=== PATIENT | male | born 1975 | race Caucasian/White ===

== ENCOUNTER 2018-12-13 21:45 | Emergency (ER) | payer OTHER, SELFPAY ==
[2018-12-13 21:46] VITALS: BP 125/78; PULSE 92; RESP 18; TEMP 36.6; O2SAT 99; BMI 35.4
--- NOTE | 2018-12-13 22:00 | RAD_ITS ---
STUDY: X-RAY - RIGHT HAND REASON FOR EXAM: Male, 43 years old. Laceration TECHNIQUE: 3 view(s) of the hand. COMPARISON: None. FINDINGS: Normal radiocarpal articulation. Normal distal radioulnar joint. Normal visualized carpal bones. Normal carpal articulations Normal carpometacarpal articulation of the thumb. Normal second through fifth carpometacarpal joints. Normal metacarpi. Normal metacarpophalangeal joint of the thumb. Normal interphalangeal joint of the thumb. Normal proximal and distal phalanges of the thumb. Normal metacarpophalangeal joints of the second through fifth fingers. Normal proximal and distal interphalangeal joints of the second through fifth fingers. Normal phalanges of the second through fifth fingers. Soft tissue swelling of the dorsal surface of the hand at the level of the metacarpal phalangeal joints. No radiopaque foreign bodies within the soft tissues RAD/Hand Min 3 Views IMPRESSION: Soft tissue swelling of the dorsal surface of the hand without evidence for acute fracture or radiopaque foreign body in the soft tissues Electronically Signed: Juvenal Reyna MD at 23:01 EST , Service support ,
--- NOTE | 2018-12-13 22:04 | ED.DCSUM_ITS ---
- ER Visit Summary Date of Service: 12/13/18 Chief Complaint: Right second finger laceration History of Present Illness: The patient is a 43 M presents to the emergency department with right second finger laceration. Patient was using a platen grinder. He states that the blade slipped and went into the dorsum of his right hand. He suffered a laceration on the dorsum of his right second finger. He is unsure of his last tetanus. He denies other injury. The patient is otherwise healthy. Physical Examination: Examination is relatively unremarkable. He does have a 2 cm laceration over the mid phalanges on the dorsum of the right second finger. Flexion and extension are preserved. Two-point determination is preserved. There is no injury to the nail. Test Results: [] Emergency Department Course and Treatment: The patient underwent plain films of the hand. There is no evidence of bony disruption. The area was anesthetized and irrigated. There was some gross contamination. I did try to remove all the pieces of the dirt from the platen grinder. Some were significantly retained within the soft tissue. There is no evidence of tendinous injury. Under a bloodless field, he was able to flex and extend. I did close the wound loosely given the amount of gross contamination. The patient will be passed on Keflex. I did drug and alcohol counsellor him this wound is going to need close reevaluation. I instructed him that if his symptoms are worsening or not improving within the next 48 hours he should return to the emergency department. He is comfortable with this plan of care. Treatment Plan: [] Disposition: Discharge Impression: 1. 2 cm right second finger laceration with repair This note was generated with [employer] dictation software. It may contain incorrect words, spelling, and punctuation that were not noted in review of the chart prior to signing ED Disposition - Plan for ED Patient: Chief Complaint: Laceration Instructions: ED Laceration Hand Prescriptions: Cephalexin [Keflex] 500 mg PO Q8 #21 cap Referrals: Care Physician,No Primary [Primary Care Provider] - 7 Days for suture removal
[2018-12-13] MEDS: Diphth,Pertuss(Acell),Tet Vac 0.5 ML Vial IM (22:43)
[2018-12-13] MEDS: Cephalexin 250 MG Capsule 500 MG PO (22:52)
== END 2018-12-13 22:59 | disposition home or self-care (01) ==
LOC: ED 22:27
PROVIDERS: Emergency Provider Emergency Medicine
DX: S61.220A Laceration with foreign body of right index finger without damage to nail, initial encounter (principal); W29.8XXA Contact with other powered hand tools and household machinery, initial encounter; Y93.89 Activity, other specified; Y92.89 Other specified places as the place of occurrence of the external cause; Y99.8 Other external cause status
CPT/HCPCS: 12041; 73130; 90471; 90715; 99284

== ENCOUNTER 2025-06-22 13:54 | Inpatient (IN) | payer BC, SELFPAY ==
[2025-06-22] VITALS (7 sets, daily range): BP systolic 132–161; BP diastolic 83–91; PULSE 74–81; RESP 18; TEMP 36.4–36.6; O2SAT 92–100; BMI 36.8
--- NOTE | 2025-06-22 14:21 | EKG12_ITS ---
Test Reason : CP Blood Pressure : */* mmHG Vent. Rate : 76 BPM Atrial Rate : 76 BPM P-R Int : 164 ms QRS Dur : 98 ms QT Int : 380 ms P-R-T Axes : 40 8 13 degrees QTcB Int : 427 ms Normal sinus rhythm Normal ECG Confirmed by HENNY CARRANZA, RAFA ([id number]), editor trade journal CAROLANN CAVAZOS ([id number]) on 06/25/2025 1:05:33 PM Referred By: LORETA/DANIA Confirmed By: RAFA INMAN MD
--- NOTE | 2025-06-22 14:36 | ED.VIS.CHEST ---
HPI History of Present Illness Chief Complaint: Chest Pain Informant: patient and spouse/S.O. Onset/Context/Timing Onset: Today and Yesterday Activity at onset: gradual Timing: Continuous Quality: Positive for Sharp and Stabbing Location: - (Epigastric area.) Current Severity: Mild Maximum Severity: Mild Worsened By: Nothing Relieved By: Nothing Associated Symptoms: Negative for Nausea, Vomiting, Diaphoresis, Dyspnea, Cough, Fever, Lightheadedness, Acid Reflux or Palpitations Narrative Narrative: 49-year-old male no Cee[facility] past medical history. No prior cardiac history. No prior cardiac testing he has never had a stress test or heart cath. States last night he had epigastric discomfort he thought it was just gas. Has been more persistent today with some tingling in his left arm. Denies any recent exertional chest pain. No significant exertional dyspnea. He did walk the dog last night prior to this occurring. He denies any nausea, vomiting or diarrhea. Denies any fever or chills. Denies any recent abdominal discomfort with eating. Prior Similar Symptoms: No Recent Illness/Hospitalization: No CVD Risk Factors: Negative for Hypertension, Diabetes or Hypercholesterolemia PE Risk Factors: Negative for Recent Travel/Surgery, Recent Immobilization, Prior DVT or PE, Cancer or OCP + Smoking + >/=35 TAD Risk Factors: Negative for Marfan's Syndrome or Family History PFSH PFS Medical History no medical history no medical history Home Medications ?Medication ?Instructions ?Recorded ?Last Taken ?Type cephalexin 500 mg capsule 500 mg PO Q8 #21 caps 12/13/18 Unknown Rx Allergy/AdvReac Type Severity Reaction Status Date / Time No Known Allergies Allergy Verified 06/22/25 13:56 Social History Smoking Status: Never smoker ROS ROS ED ROS Narrative Epigastric discomfort. No recent illness. No exertional chest pain. No significant dyspnea. No history of DVT or PE or risk factors. Constitutional Constitutional ED: Denies chills or fever(s) Eyes Eyes: Reports none ENT ENT ED: Denies ear pain Cardiovascular Cardiovascular: Denies chest pain Respiratory/Chest Respiratory/Chest: Denies cough or dyspnea Gastrointestinal Gastrointestinal: Denies abdominal pain Genitourinary Genitourinary ED: Denies dysuria or hematuria Musculoskeletal Musculoskeletal: Denies arthralgias or back pain Integumentary Denies abscess or Abrasions Neurologic Neurologic: Denies headache(s) Psychiatric Psychiatric: Denies anxiety or depression Endocrine Endocrinology: Denies cold intolerance Hematologic/Lymphatic Hematologic/Lymphatic: Denies easy bleeding or easy bruising Allergic/Immunologic Allergic/Immunologic ED: Denies mouth swelling, tongue swelling or urticaria EXAM Physical Exam Narrative Exam Narrative: Well-appearing middle-age male. Vital signs stable afebrile. Pulse ox 100% on room air. He is sitting upright in bed. No distress. at bedside. H EENT exam pupils round and react to light. Moist mucous membranes. Neck nontender no JVD. Lungs clear to auscultation bilaterally. Heart regular rate and rhythm rate about 75 no murmur. Chest wall and ribs are nontender. There is no reproducible chest wall pain. Abdomen is soft, epigastric tenderness, nondistended, normal bowel sounds without peritoneal signs. Where he points to the discomfort is actually the epigastric region. Right upper quadrant is nontender. No Gould sign. Right lower quadrant nontender. No distention. No mass or obstruction. No pulsatile mass. Patient is moving all 4 extremities. 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 Dorsi plantarflexion intact. Radial pulses equal and symmetrical. Calves are nontender without edema or cords. Neurologically is awake and alert. Answering questions following commands. No focal motor deficits. Back nontender. Repeat exam at 4:29 PM patient doing well. He does have epigastric and mild right upper quadrant tenderness. My concern is that this is not cardiac chest pain and all its always been abdominal pain I think he has gallstone pancreatitis. He be given morphine for pain and Zofran and have already ordered an ultrasound which should get rated taking down to get that obtained. He will need to be admitted. I have already discussed his test results with both he and his . Ultrasound showed multiple gallstones in the gallbladder. No obvious signs of acute cholecystitis. I discussed this with the information technology instructor we are waiting for the official radiologist interpretation. I have spoken to Dr. Singh on-call for GI. He will be consulted. I spoke to the hospitalist who admit the patient to medical floor. Patient currently is resting comfortably after receiving morphine and Zofran. He and his are comfortable with the plan. Const Vital Signs: 06/22/25 13:55 06/22/25 14:54 06/22/25 14:55 Temperature 98 F Temperature Source Oral Pulse Rate 76 77 Respiratory Rate 18 18 Blood Pressure 161/91 H 154/88 H Blood Pressure Mean 114 110 Pulse Ox 100 92 Oxygen Delivery Method Room Air Room Air Room Air 06/22/25 15:50 06/22/25 16:50 Temperature Temperature Source Pulse Rate 77 81 Respiratory Rate 18 18 Blood Pressure 144/83 H 154/91 H Blood Pressure Mean 103 112 Pulse Ox 97 95 Oxygen Delivery Method Room Air Room Air Positive well nourished and well developed; Negative for cachectic, contractures or unkempt General Appearance ED: well developed and NAD; Negative for unkempt, cachectic, contractures or pallor Nutritional Appearance: Negative for cachectic HEENT Reports moist mucous membranes normocephalic and atraumatic Eyes PERRL and EOMs intact bilaterally General Eye ED: Negative for pale conjunctiva or scleral icterus Neck no lymphadenopathy, supple and no JVD Chest Wall inspection of chest normal and palpation of chest normal Resp normal respiratory effort and clear to auscultation bilaterally Cardio regular rate, regular rhythm, S1 normal heart sound, S2 normal heart sound and no murmurs Peripheral Pulses: pulses 2+ throughout GI normal to inspection, nondistended, normoactive bowel sounds, soft to palpation, non-tender, non-distended and no masses Back/Spine no CVA tenderness and no thoracic nor lumbar tenderness Extremity normal to inspection General Extremety ED: Negative for edema, pulses abnormal or tenderness General Extremity: Negative for edema or pulses abnormal Neuro oriented x3 and CN's II-XII intact bilaterally Sensorium / Orientation: awake, alert, oriented to person, oriented to place and oriented to time Motor Exam: strength 5/5 throughout Psych mental status grossly normal Appearance: Negative for unkempt Attitude: No agitated Mood & Affect: Negative for depressed, anxious or tearful Skin no rashes or lesions noted and no wounds General Skin Exam: Negative for jaundice or pallor Rashes: No rashes noted Trauma: Negative for abrasion or laceration Heart Score History: Slightly/Non-Suspicious ECG: Normal Age: >45 - <65 years Risk Factors: No Risk Factors Troponin: </= Normal Limit Score: 1 MDM MDM MDM Narrative Medical decision making narrative: 49-year-old male with epigastric discomfort and really does not come off his cardiac chest pain. He has not had no recent exertional symptoms. He has never had a cardiac workup nor a stress test nor a heart cath. Undergo cardiac workup I will also added lipase and liver functions but this does not sound like his gallbladder or pancreatitis. He has got no real reproducible abdominal pain. History & Record Review Discussion w/independent historian: Patient and Family Additional record(s) reviewed:: Prior inpatient record, Prior outpatient record, Prior ED visit and Prior labs Lab Data Attestation: I reviewed the patient's lab results. Lab results narrative: CBC shows a white count 11.3. H&H 15 and 45. Platelets 289. Chest x-ray chronic changes no acute process. Chemistry shows sodium 137. Gap 11. BUN/creatinine are normal at 14 and 1. Glucose 109. Liver enzymes are elevated with a total bilirubin of 2.6 direct of 1.5 for AST of 358 and ALT of 463. Troponin is 10. Lipase is greater than 3000. I suspect the patient has gallstone pancreatitis. Labs: Laboratory Results - last 24 hr 06/22/25 06/22/25 14:30 16:23 WBC 11.3 H RBC 5.11 Hgb 15.1 Hct 45.8 MCV 89.6 MCH 29.5 MCHC 33.0 RDW Std Deviation 44.1 H RDW Coeff of Teresa 13.4 Plt Count 289 MPV 10.9 Immature Gran % (Auto) 0.400 Neut % (Auto) 76.9 H Lymph % (Auto) 13.7 L Kemper % (Auto) 6.8 Eos % (Auto) 1.7 Baso % (Auto) 0.5 Absolute Neuts (auto) 8.7 H Absolute Lymphs (auto) 1.55 Nucleated RBC % 0 Sodium 137 Potassium 4.0 Chloride 102 Carbon Dioxide 23.7 Anion Gap 11 BUN 14 Creatinine 1.03 Est GFR (MDRD) Non-Af 90 BUN/Creatinine Ratio 13.1 Glucose 109 H Calcium 9.4 Total Bilirubin 2.62 H Direct Bilirubin 1.54 H AST 358 H ALT 463 H Alkaline Phosphatase 96 Troponin T High Sens 10 Troponin T Hi Sens 2 Hr 8 Total Protein 7.0 Albumin 4.2 Globulin 2.8 Lipase > 3000 H Radiography Chest X-Ray - ED: 2 View, Read by ED Physician, Read by Radiologist, Normal, Heart, Lungs, Mediastinum, Bony Structures, No Acute Disease and Chronic Changes Diagnostic Testing: Clinical Impression(s) from Imaging Studies Chest X-Ray 06/22/25 14:55 IMPRESSION: The lateral view is limited by patient motion. Lungs are hypoinflated, but appear clear of acute disease. No pleural effusion or pneumothorax is noted. The cardiomediastinal silhouette is within the normal range. No acute osseous change is seen. No evidence of acute cardiopulmonary disease. Reading Location: [place] [id number] Chest x-ray, 2 views, AP and lateral, interpreted by by myself and the radiologist shows no acute abnormality chronic changes. Normal cardiac silhouette. Normal mediastinum. Rhythm Strip Rhythm Strip: Sinus Rhythm Rate: 76 Ectopy: None EKG Initial EKG: Attestation: I personally reviewed and interpreted this EKG as follows: Interpretation: Sinus Rhythm and No Acute Injury Pattern Comments: Normal sinus rhythm rate of 76 no acute signs of ME or ischemia. Discharge Plan Dx/Rx/DC Orders Clinical Impression: Abdominal pain, Acute gallstone pancreatitis Disposition Disposition: Acute Care [facility]
[2025-06-22 14:37] LABS: Hematocrit 45.8 % (40-54); Hemoglobin 15.1 g/dL (13.0-16.5); Immature Granulocytes Count 0.050 X10^3/uL (0.0-0.0); Mean Corp Hgb Conc 33.0 g/dL (32-36); Mean Corpuscular Volume 89.6 fL (80-94); Mean Platelet Vol. 10.9 fl (6.2-12.0); NRBC Flagged by Analyzer 0 % (0-5); Platelet Count 289 K/mm3 (150-450); RBC Distribution Width CV 13.4 % (11.6-14.6); RBC Distribution Width SD 44.1 fl (35.1-43.9); Red Blood Count 5.11 M/mm3 (4.6-6.2); White Blood Count 11.3 K/mm3 (4.4-11.0)
--- NOTE | 2025-06-22 14:55 | RAD_ITS ---
PROCEDURE: CHEST PA AND LATERAL 06/22/2025 REASON FOR EXAM: CHEST PAIN TECHNIQUE: CHEST PA AND LATERAL COMPARISON: None. RAD/Chest PA and Lateral IMPRESSION: The lateral view is limited by patient motion. Lungs are hypoinflated, but appear clear of acute disease. No pleural effusion or pneumothorax is noted. The cardiomediastinal silhouette is within the normal range. No acute osseous change is seen. No evidence of acute cardiopulmonary disease. Reading Location: [place] [address]
--- OUTSIDE RECORDS SUMMARY | 2025-06-22 15:21 | XMS RPT_ITS | CCD ---
Author Organization [facility] Care Team Providers Care Purchasing Clerk Name Role Phone Unavailable Primary Care Provider Unavailabl e Medications Current Medications Medication Drug Class(es) Dates Sig (Normalized) Sig (Original) cetirizine hydrochloride 10 mg oral tablet (1 source) Histamine-1 Receptor Antagonist Start: 09-21-2024 take 1 tablet by mouth once daily cetirizine (ZYRTEC) 10 mg tablet Indications: Dermatitis due to plants, including poison diane, sumac, and oak Take 1 tablet by mouth once daily. 30 tablet 09/21/2024 Active Start: 09-21-2024 take 1 tablet by mulugeta th once daily cetirizine (ZYRTEC) 10 mg tablet Indications: Dermatitis due to plants, including poison diane, sumac, and oak Take 1 tablet by mouth once daily. 30 tablet 09/21/2024 Active famotidine 20 mg oral tablet (1 source) Histamine-2 Receptor Antagonist Start: 09-21-2024 take 1 tablet by mouth once daily famotidine (PEPCID) 20 mg tablet Indications: Dermatitis due to plants, including poison diane, sumac, and oak Take 1 tablet by mouth once daily. 30 tablet 09/21/2024 Active Start: 09-21-2024 take 1 tablet by mulugeta th once daily famotidine (PEPCID) 20 mg tablet Indications: Dermatitis due to plants, including poison diane, sumac, and oak Take 1 tablet by mouth once daily. 30 tablet 09/21/2024 Active fluocinonide 0.5 mg/ml topical cream (2 sources) Corticosteroid Start: 04-22-2018 fluocinonide (LIDEX) 0.05 % cream Apply topically 2 times daily for 10 days. Apply thin layer to affected area. 60 g 0 04/22/2018 Active mometasone furoate 1 mg/ml topical cream (1 source) Corticosteroid Start: 05-09-2022 mometasone (ELOCON) 0.1 % cream Apply 1 Application (topical) 2 times per day 05/09/2022 Active predniSONE 10 mg oral tablet (1 source) Start: 09-21-2024 End: 10-06-2024 take 5 tablets by mouth once daily, then take 4 tablets by mouth once daily, then take 3 tablets by mouth once daily, then take 2 tablets by mouth once daily, then take 1 tablet by mouth once daily predniSONE (DELTASONE) 10 mg tablet Indications: Dermatitis due to plants, including poison diane, sumac, and oak Take 5 tablets by mouth once daily for 3 days, THEN 4 tablets once daily for 3 days, THEN 3 tablets once daily for 3 days, THEN 2 tablets once daily for 3 days, THEN 1 tablet once daily for 3 days. 45 tablet 09/21/2024 10/06/2024 Active sulfamethoxazole 800 mg / trimethoprim 160 mg oral tablet (1 source) Dihydrofolate Reductase Inhibitor Antibacterial, Sulfonamide Antimicrobial Start: 05-09-2022 take 1 tablet by mouth twice daily sulfamethoxazole-t rimethoprim (BACTRIM DS,SEPTRA DS) 800-160 mg per tablet Take 1 Tablet (oral) 2 times per day for 7 days 05/09/2022 Active triamcinolone acetonide 1 mg/ml topical cream (1 source) Corticosteroid Start: 09-21-2024 End: 10-01-2024 triamcinolone acetonide (KENALOG) 0.1 % cream Indications: Dermatitis due to plants, including poison diane, sumac, and oak Apply to affected area two times a day for 10 days. 28.4 g 09/21/2024 10/01/2024 Active Problems Active Problems Problem Classification Problem Date Documented Da te Episodic/Chronic Allergic reactions (1 source) Contact dermatitis due to plants; Translations: [Unspecified contact dermatitis due to plants, except food] 09-21-2024 Episodic Unclassified (1 source) Patient encounter status; Translations: [Encounter for screening laboratory testing for COVID-19 virus] Past or Other Problems Problem Classification Problem Date Documented Da te Episodic/Chronic Skin and subcutaneous tissue infections (3 sources) Disorder of nail; Translations: [Cellulitis of unspecified toe] Onset: 12-04-2011 12-04-2011 Episodic Results Test Name Value Interpretation Reference Range Facil ity CNOVon 09-21-2024 CNOV Office Visit ([facility] ) -------- SHAQ BAXTER ([id number]) 1975 M Date Time Provider Department 09/21/24 8:35 AM [place] During your visit today, we recorded the following information about you: Temperature Pulse Blood pressure Weight 98 degrees 80/minute 140/84 127.4 kg Height 1.854 m Finn Miles APRN.REGISTERED NURSING PROFESSOR 09/21/2024 8:54 AM Signed This note was created using Psonarriter. Subjective Shaq Baxter is a 49 year old male. HPI by patient: Shaq is a 49 year old presenting to the office with the complaint of poison diane Started approximately over the weekend and into Wednesday Associated symptoms include poison diane rash that is spreading Denies any other concerns Covid Immunization Dates Overdue - Covid-19 Vaccine ( season) Overdue since 07/16/2024 02/13/2021 Imm Admin: COVID-19 original vaccine, age 12+ yr, monovalent (PFIZER-BIONTECH - PURPLE TOP) 01/23/2021 Imm Admin: COVID-19 original vaccine, age 12+ yr, monovalent (PFIZER-BIONTECH - PURPLE TOP) ALLERGIES No Known Allergies No family history on file. Social History Tobacco Use Smoking status: Never Smokeless tobacco: Never Vaping Use Vaping status: Never Used Alcohol use: Not Currently Drug use: Never Review of Systems Constitutional: Negative. HENT: Negative. Cardiovascular: Negative. Skin: Positive for rash (itchy rash to whole body). Objective There were no vitals taken for this visit. Physical Exam Vitals reviewed. Constitutional: Appearance: Normal appearance. HENT: Head: Normocephalic. Pulmonary: Effort: Pulmonary effort is normal. Breath sounds: Normal breath sounds. Musculoskeletal: General: Normal range of motion. Cervical back: Full passive range of motion without pain. Skin: General: Skin is warm. Findings: Rash present. Rash is urticarial. Neurological: Mental Status: He is alert. Psychiatric: Behavior: Behavior is cooperative. Assessment and Plan ASSESSMENT/PLAN: 1. Dermatitis due to plants, including poison diane, sumac, and oak - ICD9: 692.6, ICD10: L25.5 - discussed skin care of rash - follow up if symptoms persist or worsen. - PREDNISONE 10 MG TABLET - TRIAMCINOLONE ACETONIDE 0.1 % TOPICAL CREAM - FAMOTIDINE 20 MG TABLET - CETIRIZINE 10 MG TABLET Finn Miles APRN.CNP Medical Decision Making: Problems: Moderate: New problem with uncertain prognosis Data: Unique source(s) for external note(s) reviewed: 1 Risk: Moderate: Drug management Medical Decision Making Level: 4 - Moderate Finn Miles APRN.CNP 09/21/2024 8:49 AM Signed [facility] PATIENT INFO POISON DIANE INTRODUCTION When the skin comes in direct contact with an irritating or allergy-causing substance, contact dermatitis can develop. Exposure to poison diane, poison oak, and poison sumac cause more cases of allergic contact dermatitis than all other plant families combined. People of all ethnicities and skin types are at risk for developing poison diane dermatitis. The severity of the reaction tends to decrease with age, especially in people who have had mild reactions in the past. People in occupations such as firefighting, forestry, and farming are at a higher risk of poison diane dermatitis because of repeated exposure to toxic plants. POISON DIANE CAUSES Poison diane, poison oak, and poison sumac plants all contain a compound called urushiol, which is a light, colorless oil that is found on the fruit, leaves, stem, root, and sap of the plant. When urushiol is exposed to air, it turns brown and the plant leaves develop small black spots. There are several ways that you can be exposed to urushiol: By touching the sap or rubbing against the leaves of the toxic plant By touching something that has urushiol on it, such as animal fur or garden tools By breathing in smoke when toxic plants are burned Ginkgo fruit and the skin of mangoes also contain urushiol and can produce symptoms similar to poison diane dermatitis. IDENTIFYING POISON DIANE Leaves of three, let them be is a phrase often used to identify plants that cause poison diane dermatitis. Generally, poison diane and poison oak have three leaves with flowering branches on a single stem. Poison sumac has five, seven, or more leaves that angle upward toward the top of the stem. Some types of poison diane produce a green or off-white fruit in [place], and in some cases, black dots form on the plants' leaves. It is not always possible to identify the plant by the leaves alone since the appearance can vary depending upon the season, growth cycle, region, and climate. Poison daine, oak, and sumac plants grow in many areas across the [facility] and throughout the world. East of the [facility], poison diane commonly grows as a climbing vine. In the [place] area and west, poison diane tends to grow low to the ground as a shrub. Po (more content not included)... Normal [facility] ED PROV NOTEon 05-11-2022 ED PROV NOTE HNO ID: [id number] Author: Adolfo Nguyen MD Service: Emergency Medicine Author Type: Physician Type: ED Provider Notes Filed: 05/11/2022 9:30 PM Note Text: ED Provider Note Patient Name: Shaq Baxter : 1975 SERVICE DATE: 05/11/22 History Patient presents with: Rash Shaq Baxter is a 46 year old male with history of no chronic medical problems who presents with a new left upper extremity, right upper extremity and right lower extremity rash that is described as itching. Patient used prescription steroid cream and Bactrim prior to arrival. - Patient was exposed to plant allergens. - Symptoms began 4 days prior to arrival. Onset was gradual. - Severity: moderate - Symptoms are exacerbated by scratching. - Symptoms are not exacerbated by heat. - Symptoms are associated with nothing. - Symptoms are not associated with chills and fever. - Improved by nothing. - Not improved by topical steroids Patient was doing yard work and pulling weeds and nevaeh about 4 days prior to the onset of rash. He has had problems with poison diane in the past and when he started seeing rash particularly developing on the right leg he went to [facility] and was started on steroid cream and Bactrim but he is failing to improve so he presents to the emergency department tonight.. History reviewed. No pertinent past medical history. History reviewed. No pertinent surgical history. No family history on file. Social History Tobacco Use - Smoking status: Never Smoker - Smokeless tobacco: Never Used Vaping Use - Vaping Use: Never used Substance and Sexual Activity - Alcohol use: Not Currently - Drug use: Never - Sexual activity: Not on file ALLERGIES No Known Allergies Review of Systems Constitutional: Negative for chills and fever. Respiratory: Negative for cough and shortness of breath. Skin: Positive for rash. Negative for color change, pallor and wound. Allergic/Immunologic: Positive for environmental allergies. Negative for food allergies and immunocompromised state. Psychiatric/Behavioral: Negative for confusion. The patient is not nervous/anxious. Physical Exam Vitals BP Pulse Temp Temp src Resp SpO2 Weight Height -- -- -- -- -- -- -- -- Physical Exam Vitals reviewed. Constitutional: Appearance: Normal appearance. HENT: Head: Normocephalic and atraumatic. Right Ear: External ear normal. Left Ear: External ear normal. Eyes: General: No scleral icterus. Right eye: No discharge. Left eye: No discharge. Extraocular Movements: Extraocular movements intact. Pulmonary: Effort: Pulmonary effort is normal. No respiratory distress. Musculoskeletal: General: No swelling or tenderness. Normal range of motion. Skin: General: Skin is warm and dry. Capillary Refill: Capillary refill takes less than 2 seconds. Findings: Rash present. Neurological: General: No focal deficit present. Mental Status: He is alert and oriented to person, place, and time. Psychiatric: Mood and Affect: Mood normal. Behavior: Behavior normal. Thought Content: Thought content normal. Judgment: Judgment normal. Diagnostic Testing ED Labs Ordered and Reviewed - No data to display Procedures ED Course / Clinical Impression Clinical Impressions as of 05/11/222129 Contact dermatitis due to poison diane MDM / Disposition / Plan Consistent with a plant dermatitis. He is not responding to prescription corticosteroid cream. In the past he is used prednisone tapers and I think this would be appropriate to start that. He is going to continue his antibiotic. Wyef-rax-[id number] antihistamine as needed. Disposition The patient was discharged. Counseled patient regarding suspected diagnosis. As well as the need for follow-up. Discharged home with verbal and written instructions. They were instructed to return as needed for persistent or worsening symptoms or any new concerns. Condition at disposition is stable. SIGNATURE: MD Adolfo English MD 05/11/22 2130 Normal [facility] ANKLE, COMPLETE, MIN 3 VIEWS on 08-28-2020 ANKLE, COMPLETE, MIN 3 VIEWS Patient Name: SHAQ BAXTER STUDY: ANKLE, COMPLETE, MIN 3 VIEWS; 08/28/2020 3:04 pm INDICATION: PAIN. COMPARISON: None. ACCESSION NUMBER(S): [id number] ORDERING CLINICIAN: KI UNDERWOOD FINDINGS: Right ankle, three views There is no fracture. There is no dislocation. No significant degenerative changes seen. The ankle mortise is maintained. No soft tissue abnormality seen. IMPRESSION: Unremarkable radiographs of the right ankle Electronically signed by: TAHIR NEWTON MD Normal [facility] Vital Signs Date Time Vital Sign Value Performing Clinician Molly jason 09-21-2024 08:40-0500 Body height 185.4 cm Finn Ball ROUGH AND TRUING MACHINE OPERATOR.REGISTERED NURSING PROFESSOR Work Phone: [facility] 09-21-2024 08:40-0500 Body mass index (BMI) [Ratio] 37.06 kg/m2 Finn Ball ROUGH AND TRUING MACHINE OPERATOR.REGISTERED NURSING PROFESSOR Work Phone: [facility] 09-21-2024 08:40-0500 Body temperature 98.01 [degF] Finn Ball ROUGH AND TRUING MACHINE OPERATOR.REGISTERED NURSING PROFESSOR Work Phone: [facility] 09-21-2024 08:40-0500 Body weight 127.4 kg Finn Ball ROUGH AND TRUING MACHINE OPERATOR.REGISTERED NURSING PROFESSOR Work Phone: [facility] 09-21-2024 08:40-0500 Diastolic blood pressure 84 mm[Hg] Finn Ball ROUGH AND TRUING MACHINE OPERATOR.REGISTERED NURSING PROFESSOR Work Phone: [facility] 09-21-2024 08:40-0500 Heart rate 80 /min Finn Ball ROUGH AND TRUING MACHINE OPERATOR.REGISTERED NURSING PROFESSOR Work Phone: [facility] 09-21-2024 08:40-0500 SaO2% (BldA) [Mass fraction] 95 % Finn Ball ROUGH AND TRUING MACHINE OPERATOR.REGISTERED NURSING PROFESSOR Work Phone: [facility] 09-21-2024 08:40-0500 Systolic blood pressure 140 mm[Hg] Finn Ball ROUGH AND TRUING MACHINE OPERATOR.REGISTERED NURSING PROFESSOR Work Phone: [facility] Encounters Encounter Date Encounter Type Care Provider Facility Start: 05-26-2025 End: 05-26-2025 Letter encounter [facility] Start: 09-21-2024 End: 09-21-2024 ambulatory Facility:[facility] Start: 09-21-2024 End: 09-21-2024 Office outpatient new 30 minutes Finn Miles APRN.REGISTERED NURSING PROFESSOR Work Phone: [facility] Comment on above: Dermatitis due to pl ants, including poison diane, sumac, and oak (Primary Dx) Start: 02-21-2023 Letter [facility] Start: 11-23-2022 Letter encounter [facility] Start: 08-01-2020 End: 08-01-2020 Orders Only Moshe Lu Work Phone: [facility] [place] Comment on above: Encounter for screen ing laboratory testing for COVID-19 virus (Primary Dx) Plan of Treatment Date Care Activity Detail Author Start: 12-13-2028 Tetanus vaccination Tetanus (T d or Tdap) Booster [facility] Start: 12-13-2028 Urine microalbumin profile DTaP,Tdap,Td Vaccine (2 - Td or Tdap) [facility] Start: 2027 Shingles (RZV) Vacci ne (1 of 2) Shingles (RZV) Vaccine (1 of 2) [facility] Start: 08-15-2025 Influenza vaccination Influenza Vacc ine (#1) [facility] Start: 07-16-2024 Covid-19 Vaccine ( season) Covid-19 Vaccine ( season) [facility] Start: 07-16-2024 Influenza vaccination Influenza Vacc ine (#1) [facility] Start: 2022 Diabetes Screening Diabetes Screenin g [facility] Start: 2022 Screening for malign ant neoplasm of colon [facility] Start: 08-15-2022 Influenza vaccination Influenza Vacc ine (#1) [facility] Start: 04-10-2021 COVID-19 Vaccine (3 - Booster for Pfizer series) COVID-19 Vaccine (3 - Booster for Pfizer series) [facility] Start: 2012 [facility]id panel [facility] Start: 1996 Hepatitis A (HAV) Va ccine (optional start 19+ years) Hepatitis A (HAV) Vaccine (optional start 19+ years) [facility] Start: 1996 Hepatitis B vaccination Hepati tis B (HBV) Vaccine (1 of 3 - 19+ 3-dose series) [facility] Start: 1996 Hepatitis B Vaccine (1 of 3 - 19+ 3-dose series) Hepatitis B Vaccine (1 of 3 - 19+ 3-dose series) [facility] Start: 1995 Anxiety Screening Anxiety Screening [facility] Start: 1995 Depression Screening Depression Scre ening [facility] Start: 1995 Hepatitis C screening M [facility] Start: 1995 HIV screening HIV Screening [facility] Start: 1992 HIV screening HIV Test [facility] Start: 1977 Screening for malign ant neoplasm of colon Colonoscopy [facility] End: 08-01-2021 PRE-PROCEDURE & PRE-OPERATIVE COVID PRE-PROCEDURE & PRE-OPERATIVE COVID Microbiology Routine Encounter for screening laboratory testing for COVID-19 virus 1 Occurrences starting 08/01/2020 until 08/01/2021 [facility] Comment on above: 1 Occurrences starti ng 08/01/2020 [facility] Immunization Date Immunization Notes Care Provider Ada ely 02-13-2021 Pfizer (12+ yrs) SHAYLA S-COV-2 (COVID-19) vaccine, mRNA, spike protein, LNP, pres. free, 30 mcg/0.3mL dose (ZQV=478) [facility] 01-23-2021 Pfizer (12+ yrs) SHAYLA S-COV-2 (COVID-19) vaccine, mRNA, spike protein, LNP, pres. free, 30 mcg/0.3mL dose (HTQ=482) [facility] 12-13-2018 tetanus toxoid, redu sarai diphtheria toxoid, and acellular pertussis vaccine, adsorbed [facility] Payers Date Payer Category Payer Unknown [id number] 2014 Commercial Managed C are - O [employer] [id number] 2014 Unknown [id number] Social History Date Type Detail Facility [facility] ever [facility] Start: 1975 Sex Assigned At Not on file [facility] Start: 04-22-2018 End: 09-21-2024 Tobacco smoking status ILIS Never smoked tobacco [facility] Start: 04-22-2018 End: 09-21-2024 Tobacco use and exposure Smokeless tobacco non-user [facility] Start: 09-21-2024 Alcoholic beverage intake Ex-drinker (finding) [facility] Start: 04-22-2018 End: 09-21-2024 History of Social function [facility] Start: 04-22-2018 End: 09-21-2024 Tobacco use panel [facility] National Score (1-10 0), lower number is lower risk 67 [facility] Start: 1975 [facility] Start: 08-19-2020 Gender identity Identifies as male gender (finding) [facility] Start: 08-19-2020 Sexual orientation Heterosexual (fin ding) [facility] Start: 09-18-2012 Sex Male (finding) [facility] Instructions 09-21-2024 Patient Instructions Note Date & Type Note Facility 09-21-2024 Instructions Finn Miles APRN.REGISTERED NURSING PROFESSOR - 09/21/2024 8:49 AM EST [facility] PATIENT INFO POISON DIANE INTRODUCTION When the skin comes in direct contact with an irritating or allergy-causing substance, contact dermatitis can develop. Exposure to poison diane, poison oak, and poison sumac cause more cases of allergic contact dermatitis than all other plant families combined. People of all ethnicities and skin types are at risk for developing poison diane dermatitis. The severity of the reaction tends to decrease with age, especially in people who have had mild reactions in the past. People in occupations such as firefighting, forestry, and farming are at a higher risk of poison diane dermatitis because of repeated exposure to toxic plants. POISON DIANE CAUSES Poison diane, poison oak, and poison sumac plants all contain a compound called urushiol, which is a light, colorless oil that is found on the fruit, leaves, stem, root, and sap of the plant. When urushiol is exposed to air, it turns brown and the plant leaves develop small black spots. There are several ways that you can be exposed to urushiol: By touching the sap or rubbing against the leaves of the toxic plant By touching something that has urushiol on it, such as animal fur or garden tools By breathing in smoke when toxic plants are burned Ginkgo fruit and the skin of mangoes also contain urushiol and can produce symptoms similar to poison diane dermatitis. IDENTIFYING POISON DIANE Leaves of three, let them be is a phrase often used to identify plants that cause poison diane dermatitis. Generally, poison diane and poison oak have three leaves with flowering branches on a single stem. Poison sumac has five, seven, or more leaves that angle upward toward the top of the stem. Some types of poison diane produce a green or off-white fruit in [place], and in some cases, black dots form on the plants' leaves. It is not always possible to identify the plant by the leaves alone since the appearance can vary depending upon the season, growth cycle, region, and climate. Poison diane, oak, and sumac plants grow in many areas across the [facility] and throughout the world. East of the [facility], poison diane commonly grows as a climbing vine. In the [place] area and west, poison diane tends to grow low to the ground as a shrub. Poison oak most often grows west of the [facility], and poison sumac inhabits boggy areas in the southeastern part of the [facility]. The plants are not usually found in areas at high elevations or in desert climates. POISON DIANE SIGNS AND SYMPTOMS After contact with urushiol, approximately 50 percent of people develop signs and symptoms of poison diane dermatitis. The symptoms and severity differ from person to person. The most common signs and symptoms of poison diane dermatitis are: Intense itching Skin swelling Skin redness These symptoms usually develop within four hours to four days after exposure to the urushiol. After the initial symptoms, you will develop fluid-filled blisters in a line or streak-like pattern. The symptoms are worst within 1 to 14 days after touching the plant, but can develop up to 21 days later if you have never been exposed to urushiol before. The blisters can occur at different times in different people; blisters can develop on the arms several days after blisters on the hands developed. This does not mean that the reaction is spreading from one area of the body to the other. The fluid that leaks from blisters does not cause symptoms. Poison diane dermatitis is not contagious and cannot be passed from person to person. However, urushiol can be carried under fingernails and on clothes; if another person comes in contact with the urushiol, they can develop poison diane dermatitis. POISON DIANE DIAGNOSIS Poison diane is usually diagnosed based upon how your skin looks. Further testing is not usually necessary. POISON DIANE TREATMENT Poison diane dermatitis usually resolves within one to three weeks without treatment. Treatments that may help relieve the itching, soreness, and discomfort caused by poison diane dermatitis include: Skin treatments -- For some people, adding oatmeal to a bath, applying cool wet compresses, and applying calamine lotion may help to relieve itching. Once the blisters begin weeping fluid, astringents containing aluminum acetate (Cristo's solution) and Domeboro may help to relieve the rash. Antihistamines -- Antihistamines may help to relieve itching caused by poison diane dermatitis. Some antihistamines make you sleepy while others do not. Antihistamines that make you sleepy (eg, diphenhydramine [Benadryl ]) may be helpful if you have trouble sleeping due to itching. Other formulas (eg, loratadine [Claritin ], cetirizine [Zyrtec ]) may be preferable for daytime. Steroid creams -- Steroid creams may be helpful if they are used during the first few days after symptoms develop. Low potency steroid creams, such as 1 percent hydrocortisone (available in the [place] without prescription) are not usually helpful. A stronger prescription formula may be helpful. Steroids -- If you develop severe symptoms or the rash covers a large area (especially on the face or genitals), you may need steroid pills or injections (eg, prednisone) to help relieve itching and swelling. Pills are usually given for 14 to 21 days, with the dosage slowly decreased over time. Antibiotics -- Skin infections are a potential complication of poison diane, especially if you scratch your skin. If you develop a skin infection because of poison diane dermatitis, you may need antibiotics to treat the infection. Other treatments -- An herbal therapy called jewelweed extract has been used to treat poison diane dermatitis, although it has not been proven effective. You should not use antihistamine creams or lotions, anesthetic creams containing benzocaine, or antibiotic creams containing neomycin or bacitracin to the skin. These creams or ointments could make the rash worse. POISON DIANE PREVENTION The best way to prevent poison diane dermatitis is to identify and avoid the plants that cause it. These plants can irritate the skin year round, even during the winter months, and can still cause a reaction years after the plant dies. Wear protective clothing, including long sleeves and pants when working in areas where toxic plants may be found. Keep in mind that the resin and oils from the toxic plants can be carried on clothing, pets, and under fingernails. Wear heavy-duty vinyl gloves when doing yard work or gardening. The oils from toxic plants can seep through latex or rubber gloves. After coming in contact with poison diane, remove any contaminated clothing and gently wash (do not scrub or rub) you skin and under the fingernails with mild soap and water as soon as possible. Washing within two hours after exposure can reduce the likelihood and severity of symptoms; washing the skin after you have symptoms will not help. Creams and ointments that create a barrier between the skin and the urushiol oil may be somewhat effective for people who are frequently exposed to poison diane. Bentoquatam (Diane Block ) is one type of barrier cream that may prevent poison diane dermatitis. It must be reapplied every four hours and it leaves a renan residue on the skin. Avoid burning poisonous vegetation, which can disperse the plant particles in the smoke, irritate the skin, and cause poison diane dermatitis. documented in this encounter [facility] Progress note 09-21-2024 Note Date & Type Note Facility 09-21-2024 Note HNO ID: [id number] Author: FINN MILES APRN.GLORIA Service: ? Author Type: Nurse Practitioner Type: Progress Notes Filed: 09/21/2024 08:54 Note Text: This note was created using NoteWriter. Subjective Shaq Baxter is a 49 year old male. HPI by patient: Shaq is a 49 year old presenting to the office with the complaint of poison diaen Started approximately over the weekend and into Wednesday Associated symptoms include poison diane rash that is spreading Denies any other concerns Covid Immunization Dates Overdue - Covid-19 Vaccine () Overdue since 07/16/2024 02/13/2021 Imm Admin: COVID-19 original vaccine, age 12+ yr, monovalent (PFIZER-BIONTECH - PURPLE TOP) 01/23/2021 Imm Admin: COVID-19 original vaccine, age 12+ yr, monovalent (PFIZER-BIONTECH - PURPLE TOP) ALLERGIES No Known Allergies No family history on file. Social History Tobacco Use Smoking status: Never Smokeless tobacco: Never Vaping Use Vaping status: Never Used Alcohol use: Not Currently Drug use: Never Review of Systems Constitutional: Negative. HENT: Negative. Cardiovascular: Negative. Skin: Positive for rash (itchy rash to whole body). Objective There were no vitals taken for this visit. Physical Exam Vitals reviewed. Constitutional: Appearance: Normal appearance. HENT: Head: Normocephalic. Pulmonary: Effort: Pulmonary effort is normal. Breath sounds: Normal breath sounds. Musculoskeletal: General: Normal range of motion. Cervical back: Full passive range of motion without pain. Skin: General: Skin is warm. Findings: Rash present. Rash is urticarial. Neurological: Mental Status: He is alert. Psychiatric: Behavior: Behavior is cooperative. Assessment and Plan ASSESSMENT/PLAN: 1. Dermatitis due to plants, including poison diane, sumac, and oak - ICD9: 692.6, ICD10: L25.5 - discussed skin care of rash - follow up if symptoms persist or worsen. - PREDNISONE 10 MG TABLET - TRIAMCINOLONE ACETONIDE 0.1 % TOPICAL CREAM - FAMOTIDINE 20 MG TABLET - CETIRIZINE 10 MG TABLET Finn Miles APRN.CNP Medical Decision Making: Problems: Moderate: New problem with uncertain prognosis Data: Unique source(s) for external note(s) reviewed: 1 Risk: Moderate: Drug management Medical Decision Making Level: 4 - Moderate [facility] History of Present illness Narrative 09-21-2024 Finn Miles APRN.CNP - 09/21/2024 8:38 AM EST Note Date & Type Note Facility 09-21-2024 History of Presen t illness Narrative Images from the original note were not included. This note was created using InternetVista. Subjective Shaq Baxter is a 49 year old male. HPI by patient: Shaq is a 49 year old presenting to the office with the complaint of poison diane Started approximately over the weekend and into Wednesday Associated symptoms include poison diane rash that is spreading Denies any other concerns Covid Immunization Dates Overdue - Covid-19 Vaccine ( season) Overdue since 07/16/2024 02/13/2021 Imm Admin: COVID-19 original vaccine, age 12+ yr, monovalent (PFIZER-BIONTECH - PURPLE TOP) 01/23/2021 Imm Admin: COVID-19 original vaccine, age 12+ yr, monovalent (PFIZER-BIONTECH - PURPLE TOP) ALLERGIES No Known Allergies No family history on file. Social History Tobacco Use Smoking status: Never Smokeless tobacco: Never Vaping Use Vaping status: Never Used Alcohol use: Not Currently Drug use: Never Review of Systems Constitutional: Negative. HENT: Negative. Cardiovascular: Negative. Skin: Positive for rash (itchy rash to whole body). Objective There were no vitals taken for this visit. Physical Exam Vitals reviewed. Constitutional: Appearance: Normal appearance. HENT: Head: Normocephalic. Pulmonary: Effort: Pulmonary effort is normal. Breath sounds: Normal breath sounds. Musculoskeletal: General: Normal range of motion. Cervical back: Full passive range of motion without pain. Skin: General: Skin is warm. Findings: Rash present. Rash is urticarial. Neurological: Mental Status: He is alert. Psychiatric: Behavior: Behavior is cooperative. Assessment and Plan ASSESSMENT/PLAN: 1. Dermatitis due to plants, including poison diane, sumac, and oak - ICD9: 692.6, ICD10: L25.5 - discussed skin care of rash - follow up if symptoms persist or worsen. - PREDNISONE 10 MG TABLET - TRIAMCINOLONE ACETONIDE 0.1 % TOPICAL CREAM - FAMOTIDINE 20 MG TABLET - CETIRIZINE 10 MG TABLET Finn Miles APRN.CNP Medical Decision Making: Problems: Moderate: New problem with uncertain prognosis Data: Unique source(s) for external note(s) reviewed: 1 Risk: Moderate: Drug management Medical Decision Making Level: 4 - Moderate documented in this encounter [facility] Evaluation note Note Date & Type Note Facility Evaluation note Diagnosis Dermatitis due to plants, including poison diane, sumac, and oak- Primary Contact dermatitis and other eczema due to plants (except food) documented in this encounter [facility] Summary Purpose Family History No Family History Records FoundNo Family History Records FoundNo Family History Records Found Advance Directives No Advanced Directives Records FoundNo Advanced Directives Records FoundNo Advanced Directives Records Found Assessments Diagnosis Encounter for screening laboratory testing for COVID-19 virus- Primary Additional Source Comments (unrecognized sect ion and content) No Status Records FoundNo Status Records FoundNo Status Records Found INFORMATION SOURCE (unrecogn ized section and content) DATE CREATED AUTHOR 09/02/2020 [facility] DATE CREATED AUTHOR AUTHOR'S ORGANIZ ATION 05/12/2022 [facility] DATE CREATED AUTHOR AUTHOR'S ORGANIZ ATION 09/23/2024 [facility] Source Comments (unrecognize d section and content) In the event this informatio n is protected by the Federal Confidentiality of Alcohol and Drug Abuse Patient Records regulations: The Federal rules restrict any use of the information to criminally investigate or prosecute any alcohol or drug abuse patient[facility] event this information is protected by the Federal Confidentiality of Alcohol and Drug Abuse Patient Records regulations: The Federal rules restrict any use of the information to criminally investigate or prosecute any alcohol or drug abuse patient.[facility] Reason for Visit (unrecogniz ed section and content) Reason Comments Poison Diane FOR RECORDS PERTAINING TO PATIENTS WHO ARE OR HAVE BEEN ENROLLED IN A CHEMICAL DEPENDENCY/SUBSTANCEABUSE PROGRAM, SOME INFORMATION MAY BE OMITTED. This clinical summary was aggregated from multiple sources. Caution should be exercised in using it in the provision of clinical care. This summary normalizes information from multiple sources, and as a consequence, information in this document may materially change the coding, format and clinical context of patient data. In addition, data may be omitted in some cases. CLINICAL DECISIONS SHOULD BE BASED ON THE PRIMARY CLINICAL RECORDS. [facility]. provides no warranty or guarantee of the accuracy or completeness of information in this document.
[2025-06-22 15:27] LABS: AST(SGOT) 358 U/L (<=37); Alanine Aminotransfer ALT/SGPT 463 U/L (<=46); Albumin, Serum 4.2 g/dL (3.5-5.0); Alkaline Phosphatase 96 U/L (40-129); Anion Gap 11 (5-15); BUN 14 mg/dL (4-19); BUN/Creat Ratio 13.1 RATIO (10-20); Bilirubin, Direct 1.54 mg/dL (0.00-0.30); Calcium,Total 9.4 mg/dL (7.6-11.0); Carbon Dioxide 23.7 mmol/L (21.0-32.0); Chloride 102 mmol/L (98-108); Globulin 2.8 g/dL (2.2-4.2); Glucose 109 mg/dL (70-99); Potassium 4.0 mmol/L (3.3-5.1); Troponin T High Sensitivity 10 ng/L (<=22)
[2025-06-22 15:53] LABS: Lipase > 3000 U/L (13-75)
--- NOTE | 2025-06-22 16:26 | US_ITS ---
PROCEDURE: GALLBLADDER 06/22/2025 REASON FOR EXAM: EPIGASTRIC ABD PAIN WITH ELEVATED LFT'SAND LIPASE COMPARISON: Correlation with abdominal CT same day 06/22/2025. FINDINGS: Liver: Mildly enlarged measuring roughly 21 cm in length. Diffuse increased echogenicity of the hepatic parenchyma compatible with fatty infiltration. No discrete focal lesion is seen in the liver. Gallbladder: Multiple shadowing calculi and echogenic sludge material within the gallbladder. No substantial gallbladder dilatation, wall thickening or pericholecystic fluid. Negative sonographic Gould's sign. Common bile duct: Within normal limits measuring 0.5 cm in diameter. Pancreas: Poorly visualized, largely obscured by bowel gas. Concomitant CT demonstrates prominent peripancreatic fat stranding/edema, compatible with acute pancreatitis. Other: Visualized right kidney is unremarkable. No right upper quadrant ascites. US/Gallbladder IMPRESSION: 1. Cholelithiasis, without evidence of acute cholecystitis. 2. No intra or extrahepatic biliary ductal dilatation. 3. Pancreas is poorly visualized on this exam and not adequately assessed. Ramirez pamela, concomitant CT shows prominent peripancreatic fat stranding/edema consistent with acute pancreatitis. 4. Hepatomegaly with diffuse hepatic steatosis. Reading Location: [id number]
[2025-06-22 16:54] LABS: Troponin T High Sens 2 HR 8 ng/L (<=22)
--- NOTE | 2025-06-22 17:36 | CT_ITS ---
PROCEDURE: CT ABDOMEN/PELVIS W IV CONT ONLY 06/22/2025 REASON FOR EXAM: PANCREATITIS AND OBSTRUCTIVE JAUNDICE TECHNIQUE: CT ABDOMEN/PELVIS W IV CONT ONLY. Coronal and Sagittal reconstruction series were provided. CONTRAST: Isovue-300 VOLUME: 97 mL One or more dose reduction techniques were used (e.g., Automated exposure control, adjustment of the mA and/or kV according to patient size, use of iterative reconstruction technique. RADIATION DOSE SUMMARY: DLP: 1441.96 mGycm COMPARISON: Concomitant abdominal ultrasound same day 06/22/2025. FINDINGS: Lung bases: Clear. Liver: Mildly enlarged with diffuse hepatic steatosis. No focal lesion appreciated. Gallbladder: Cholelithiasis. No biliary ductal dilatation. No substantial pericholecystic inflammatory changes, or gallbladder wall thickening/edema to suggest acute cholecystitis. Spleen: Normal size and morphology. Pancreas: Prominent peripancreatic inflammatory fat stranding/edema centered around the pancreatic head/neck region, compatible with acute pancreatitis. No focal lesion or ductal dilatation. No regions of parenchymal hypoattenuation to suggest pancreatic necrosis. Traversing major vascular structures appear patent, normal in course and caliber without occlusion/thrombosis, or aneurysm. No organized/walled-off fluid collection, or pancreatic pseudocyst at this time. Adrenals: Unremarkable. Kidneys: Normal, symmetric enhancement. No urolithiasis or hydroureteronephrosis. Bladder: Unremarkable. Reproductive Organs: Within normal limits. Bowel: Probable mild reactive duodenitis secondary to the adjacent peripancreatic inflammation. Otherwise the gastrointestinal tract is unremarkable. No evidence of bowel obstruction or active inflammatory process elsewhere. Normal appendix. Lymph nodes: No enlarged abdominopelvic lymph nodes. Vasculature: Major vascular structures are patent, normal in course and caliber. Peritoneum / Retroperitoneum: Peripancreatic edema. No drainable ascites or free air. Bones: No significant abnormality. CT/Abdomen/Pelvis W IV Cont ONLY IMPRESSION: 1. Acute uncomplicated interstitial edematous pancreatitis. 2. Cholelithiasis, without discrete evidence of acute cholecystitis. 3. No significant biliary or pancreatic ductal dilatation. 4. Mild hepatomegaly with diffuse hepatic steatosis. Reading Location: [id number]
--- NOTE | 2025-06-22 17:57 | HP.PCM.HOS_ITS ---
HPI - General General Date of Service: 06/22/25 Chief Complaint: Abdominal pain HPI Narrative TOMAS BAXTER, is a 49 M who presents with a 2-day history of abdominal pain. This is a 49-year-old male with no segment past medical history presents with epigastric abdominal pain. Symptoms began the seventh and has persisted.'s, more spread out and more painful. He presented to the emergency room where he had test that showed lipase of greater than 3000, total bilirubin of 2.62, direct bilirubin of 1.54, AST of 358 and ALT of 463 (no baseline labs available in [facility]). He had an ultrasound performed and the preliminary read mentioned numerous gallstones within the gallbladder. There is apparently overlying bowel gas that precluded imaging of the pancreas. Patient does not consume any alcohol. [facility] Medical History no medical history no medical history Home Medications ?Medication ?Instructions ?Recorded ?Last Taken ?Type cephalexin 500 mg capsule 500 mg PO Q8 #21 caps Unknown Rx Allergy/AdvReac Type Severity Reaction Status Date / Time No Known Allergies Allergy Verified 06/22/25 13:56 Family History (Updated 06/22/25 @ 17:[address] Prosper Berrios DO) Grandfather Heart disease Abdominal aortic aneurysm Surgical History no surgical history no surgical history Social History (Updated 06/22/25 @ 17:[address] Prosper Berrios DO) Smoking Status: Never smoker alcohol intake: never substance use type: does not use ROS ROS Narrative All review of systems were negative except as mentioned above in the history of present illness and the other review of systems. Vital Signs Vital Signs Vital Signs: 06/22/25 13:55 06/22/25 14:54 06/22/25 14:55 Temperature 36.6 C Temperature Source Oral Pulse Rate 76 77 Respiratory Rate 18 18 Blood Pressure 161/91 H 154/88 H Blood Pressure Mean 114 110 Pulse Ox 100 92 Oxygen Delivery Method Room Air Room Air Room Air 06/22/25 15:50 06/22/25 16:50 06/22/25 17:51 Temperature Temperature Source Pulse Rate 77 81 77 Respiratory Rate 18 18 18 Blood Pressure 144/83 H 154/91 H 132/88 H Blood Pressure Mean 103 112 102 Pulse Ox 97 95 94 Oxygen Delivery Method Room Air Room Air Room Air 06/22/25 17:52 Temperature 36.6 C Temperature Source Pulse Rate 77 Respiratory Rate 18 Blood Pressure 132/88 H Blood Pressure Mean 102 Pulse Ox 94 Oxygen Delivery Method Physical Exam Narrative - Physical Exam General: Alert, Oriented x3, Cooperative. Comfortable in bed. Is a little groggy as he had just received IV morphine. HEENT: Atraumatic, PERRLA, EOMI, Normocephalic Oral: Moist Mucosa, No Gingival or Mucosal Lesions/ Ulcerations Neck: Supple, No JVD, Negative Carotid Bruits Lungs: Clear to auscultation, Normal air movement Cardiovascular: Regular rate, Normal S1, Normal S2, No murmurs Abdomen: Bowel Sounds Present, Soft, Non-Distended, No Hepato-splenomegaly, epigastric abdominal pain with no rebound. Extremities: No clubbing, No cyanosis, No edema, Capillary Refill Less than 3 Seconds Skin: No rashes, No breakdown Musculoskeletal: No Tenderness to Palpation of Joints or Extremities Neurological: Neuro grossly intact. Moves all extremities spontaneously. Psych/Mental Status: Normal Affect, Appropriate Results Lab / Micro Data Attestation: I reviewed the patient's lab results. 06/22/25 14:30 06/22/25 14:30 Labs: Laboratory Results - last 24 hr 06/22/25 14:30: WBC 11.3 H, RBC 5.11, Hgb 15.1, Hct 45.8, MCV 89.6, MCH 29.5, MCHC 33.0, RDW Std Deviation 44.1 H, RDW Coeff of Teresa 13.4, Plt Count 289, MPV 10.9, Immature Gran % (Auto) 0.400, Neut % (Auto) 76.9 H, Lymph % (Auto) 13.7 L, [place] % (Auto) 6.8, Eos % (Auto) 1.7, Baso % (Auto) 0.5, Absolute Neuts (auto) 8.7 H, Absolute Lymphs (auto) 1.55, Nucleated RBC % 0, Sodium 137, Potassium 4.0, Chloride 102, Carbon Dioxide 23.7, Anion Gap 11, BUN 14, Creatinine 1.03, Est GFR (MDRD) Non-Af 90, BUN/Creatinine Ratio 13.1, Glucose 109 H, Calcium 9.4, Total Bilirubin 2.62 H, Direct Bilirubin 1.54 H, AST 358 H, ALT 463 H, Alkaline Phosphatase 96, Troponin T High Sens 10, Total Protein 7.0, Albumin 4.2, Globulin 2.8, Lipase > 3000 H 06/22/25 16:23: Troponin T Hi Sens 2 Hr 8 Rhythm Strip Rhythm Strip: Sinus Rhythm Rate: 76 Ectopy: None Imaging Radiology Impression Chest X-Ray 06/22/25 14:55 IMPRESSION: The lateral view is limited by patient motion. Lungs are hypoinflated, but appear clear of acute disease. No pleural effusion or pneumothorax is noted. The cardiomediastinal silhouette is within the normal range. No acute osseous change is seen. No evidence of acute cardiopulmonary disease. Reading Location: [place] [id number] Assessment & Plan Assessment/Plan (1) Acute gallstone pancreatitis: PLAN: Likely gallstone mediated as ultrasound preliminary read was mentioning numerous gallstones within the lumen of the gallbladder. Patient denies alcohol consumption. CAT scan has been ordered but not yet performed. Dr. Singh of gastroenterology has been contacted and will be seeing the patient in consultation. Tentative plan is for an ERCP on the . I spoke with Dr. Weeks who agrees to being consult with the patient is here. Is has yet to be determined whether or not the patient would require surgery to have his gallbladder removed lysed here or have that done as outpatient. She will review the images and make further determination. Current management will include pain control, antiemetics and IV fluid. PLAN: Plan VTE prophylaxis with SCDs holding off on chemical prophylaxis based on the procedures. Case discussed with the patient's at bedside CODE STATUS: Addressed with the patient. Patient wishes to be full code. Charges/Coding Visit Charges Inpatient E&M: 88626 Init Hosp L2
--- OUTSIDE RECORDS SUMMARY | 2025-06-22 18:26 | XMS RPT_ITS | CCD ---
Author Organization [facility] Care Team Providers Care Radiology Orderly Name Role Phone Unavailable Primary Care Provider [...] Office Visit ([place] ) -------- SHAQ BAXTER ([id number]) 1975 M Date Time Provider Department 09/21/24 8:35 AM FINN MILES During your visit today, we recorded the following information about you: Temperature Pulse Blood pressure Weight 98 degrees 80/minute 140/84 127.4 kg Height 1.854 m Finn Miles APRN.PASSENGER ELEVATOR OPERATOR 09/21/2024 8:54 AM Signed This note was created using SoundRoadieriter. Subjective Shaq Baxter is a 49 year [...] plants grow in many areas across the [facility] and throughout the world. [place] of the [facility], poison diane commonly grows as a climbing vine. In the [place] area and [place], poison diane tends to grow low to the ground as a shrub. Po (more content not included)... Normal [facility] ED PROV NOTEon 05-11-2022 ED PROV NOTE HNO ID: [id number] Author: Adolfo Nguyen MD Service: Emergency Medicine [...] He is going to continue his antibiotic. Meyt-ane-arcfxuo antihistamine as needed. Disposition The patient was discharged. Counseled patient regarding suspected diagnosis. As well as the need for follow-up. Discharged home with verbal and written instructions. They were instructed to return as needed for persistent or worsening symptoms or any new concerns. Condition at disposition is stable. SIGNATURE: MD Adolfo English MD 05/11/22 2130 Normal [facility] ANKLE, COMPLETE, MIN 3 VIEWS on 08-28-2020 ANKLE, COMPLETE, MIN 3 VIEWS Patient Name: SHAQ BAXTER STUDY: ANKLE, COMPLETE, MIN 3 VIEWS; 08/28/2020 3:04 pm INDICATION: PAIN. COMPARISON: None. ACCESSION NUMBER(S): [id number] ORDERING CLINICIAN: KI UNDERWOOD FINDINGS: Right ankle, three views There is no fracture. There is no dislocation. No significant degenerative changes seen. The ankle mortise is maintained. No soft tissue abnormality seen. IMPRESSION: Unremarkable radiographs of the right ankle Electronically signed by: TAHIR NEWTON MD Normal [facility] Vital Signs Date Time Vital Sign Value Performing Clinician Molly jason 09-21-2024 08:40-0500 Body height 185.4 cm Finn Ball DIRECTOR RETIREMENT.PASSENGER ELEVATOR OPERATOR Work Phone: [facility] 09-21-2024 08:40-0500 Body mass index (BMI) [Ratio] 37.06 kg/m2 Finn Ball DIRECTOR RETIREMENT.PASSENGER ELEVATOR OPERATOR Work Phone: [facility] 09-21-2024 08:40-0500 Body temperature 98.01 [degF] Finn Ball DIRECTOR RETIREMENT.PASSENGER ELEVATOR OPERATOR Work Phone: [facility] 09-21-2024 08:40-0500 Body weight 127.4 kg Finn Ball DIRECTOR RETIREMENT.PASSENGER ELEVATOR OPERATOR Work Phone: [facility] 09-21-2024 08:40-0500 Diastolic blood pressure 84 mm[Hg] Finn Ball DIRECTOR RETIREMENT.PASSENGER ELEVATOR OPERATOR Work Phone: [facility] 09-21-2024 08:40-0500 Heart rate 80 /min Finn Ball DIRECTOR RETIREMENT.PASSENGER ELEVATOR OPERATOR Work Phone: [facility] 09-21-2024 08:40-0500 SaO2% (BldA) [Mass fraction] 95 % Finn Ball DIRECTOR RETIREMENT.PASSENGER ELEVATOR OPERATOR Work Phone: [facility] 09-21-2024 08:40-0500 Systolic blood pressure 140 mm[Hg] Finn Ball DIRECTOR RETIREMENT.PASSENGER ELEVATOR OPERATOR Work Phone: [facility] Encounters Encounter Date Encounter Type Care Provider Facility Start: 05-26-2025 End: 05-26-2025 [facility] Start: 09-21-2024 End: 09-21-2024 ambulatory Facility:[facility] Start: 09-21-2024 End: 09-21-2024 Office outpatient new 30 minutes Finn Miles APRN.PASSENGER ELEVATOR OPERATOR Work Phone: [facility] Comment on above: Dermatitis due to pl ants, including poison diane, sumac, and oak (Primary Dx) Start: 02-21-2023 Letter [facility] Start: 11-23-2022 Letter encounter [facility] Start: 08-01-2020 End: 08-01-2020 Orders Only Moshe Lu Work Phone: [facility] Comment on above: Encounter for screen ing laboratory testing for COVID-19 virus (Primary Dx) Plan of Treatment Date Care Activity Detail Author Start: 12-13-2028 Tetanus vaccination Tetanus (T d or Tdap) Booster [facility] Start: 12-13-2028 Urine microalbumin profile DTaP,Tdap,Td Vaccine (2 - Td or Tdap) [facility] Start: 2027 Shingles (RZV) Vacci ne (1 of 2) Shingles (RZV) Vaccine (1 of 2) [facility] Start: 08-15-2025 Influenza vaccination Influenza Vacc ine (#1) [facility] Start: 07-16-2024 Covid-19 Vaccine ( season) Covid-19 Vaccine ( season) [facility] Start: 07-16-2024 Influenza vaccination Influenza Vacc ine (#1) [facility] Start: 2022 Diabetes Screening Diabetes Screenin g [facility] Start: 2022 Screening for malign ant neoplasm of colon [facility] Start: 08-15-2022 Influenza vaccination Influenza Vacc ine (#1) [facility] Start: 04-10-2021 COVID-19 Vaccine (3 - Booster for Pfizer series) COVID-19 Vaccine (3 - Booster for Pfizer series) [facility] Start: 2012 [facility] Start: 1996 Hepatitis A (HAV) Va ccine (optional start 19+ years) Hepatitis A (HAV) Vaccine (optional start 19+ years) [facility] Start: 1996 Hepatitis B vaccination Hepati tis B (HBV) Vaccine (1 of 3 - 19+ 3-dose series) [facility] Start: 1996 Hepatitis B Vaccine (1 of 3 - 19+ 3-dose series) Hepatitis B Vaccine (1 of 3 - 19+ 3-dose series) [facility] Start: 1995 Anxiety Screening Anxiety Screening [facility] Start: 1995 Depression Screening Depression Scre ening [facility] Start: 1995 Hepatitis C screening M [facility] Start: 1995 HIV screening HIV Screening [facility] Start: 1992 HIV screening HIV Test [facility] Start: 1977 Screening for malign ant neoplasm of colon Colonoscopy [facility] End: 08-01-2021 PRE-PROCEDURE & PRE-OPERATIVE COVID PRE-PROCEDURE & PRE-OPERATIVE COVID Microbiology Routine Encounter for screening laboratory testing for COVID-19 virus 1 Occurrences starting 08/01/2020 until 08/01/2021 [facility] Comment on above: 1 Occurrences starti ng 08/01/2020 until 08/01/20[facility] Immun[facility] Immunization Date Immunization Notes Care Provider Ada ely 02-13-2021 Pfizer (12+ yrs) SHAYLA S-COV-2 (COVID-19) vaccine, mRNA, spike protein, LNP, pres. free, 30 mcg/0.3mL dose (ANS=683) [facility] 01-23-2021 Pfizer (12+ yrs) SHAYLA S-COV-2 (COVID-19) vaccine, mRNA, spike protein, LNP, pres. free, 30 mcg/0.3mL dose (GJG=511) [facility] 12-13-2018 tetanus toxoid, redu sarai diphtheria toxoid, and acellular pertussis vaccine, adsorbed [facility] Payers Date Payer Category Payer Unknown [id number] 2014 Commercial Managed C are - O [employer] [id number] 2014 Unknown [id number] Social History Date Type Detail Facility [facility] Start: 1975 Sex Assigned At Not on file [facility] Start: 04-22-2018 End: 09-21-2024 Tobacco smoking status SDIS Never smoked tobacco [facility] Start: 04-22-2018 End: 09-21-2024 Tobacco use and exposure Smokeless tobacco non-user [facility] Start: 09-21-2024 Alcoholic beverage intake Ex-drinker (finding) [facility] Start: 04-22-2018 End: 09-21-2024 History of Social function [facility] Start: 04-22-2018 End: 09-21-2024 Tobacco use panel [facility] National Score (1-10 0), lower number is lower risk 67 [facility] Start: 1975 [facility] Start: 08-19-2020 Gender identity Identifies as male gender (finding) [facility] Start: 08-19-2020 Sexual orientation Heterosexual (fin ding) [facility] Start: 09-18-2012 Sex Male (finding) [place] Instructions 09-21-2024 Patient Instructions Note Date & Type Note Facility 09-21-2024 Instructions Finn Miles APRN.PASSENGER ELEVATOR OPERATOR - 09/21/2024 8:49 AM EST [facility] [...] used to identify plants that cause poison daine dermatitis. Generally, poison diane and poison oak [...] plants grow in many areas across the [facility] and throughout the world. [place] of the [facility], poison diane commonly grows as a climbing vine. In the [place] area and [place], poison diane tends to grow low to the ground as a shrub. Poison oak most often grows west of the [facility], and poison sumac inhabits boggy areas in the southeastern part of the [facility]. The plants are not usually found [...] poison diane dermatitis. documented in this encounter [facility] Progress note 09-21-2024 Note Date & Type Note Facility 09-21-2024 Note HNO ID: [id number] Author: FINN MILES APRN.GLORIA Service: ? Author [...] Medical Decision Making Level: 4 - Moderate [facility] History of Present illness Narrative 09-21-2024 Finn Miles APRN.CNP - 09/21/2024 8:38 AM EST Note Date & Type Note Facility 09-21-2024 History of Presen t illness Narrative Images from the original note were not included. This note was created using iCrimefighter. Subjective Shaq Baxter is a 49 year [...] 4 - Moderate documented in this encounter [facility] Evaluation note Note Date & Type Note Facility Evaluation note Diagnosis Dermatitis due to plants, including poison diane, sumac, and oak- Primary Contact dermatitis and other eczema due to plants (except food) documented in this encounter [facility] Summary Purpose Family History No Family [...] section and content) DATE CREATED AUTHOR 09/02/2020 [facility] DATE CREATED AUTHOR AUTHOR'S ORGANIZ ATION 05/12/2022 [facility] DATE CREATED AUTHOR AUTHOR'S ORGANIZ ATION 09/23/2024 [facility] Source Comments (unrecognize d section and content) In the event this informatio n is protected by the Federal Confidentiality of Alcohol and Drug Abuse Patient Records regulations: The Federal rules restrict any use of the information to criminally investigate or prosecute any alcohol or drug abuse patient.[facility] the event this information is protected by the Federal Confidentiality of Alcohol and Drug Abuse Patient Records regulations: The Federal rules restrict any use of the information to criminally investigate or prosecute any alcohol or drug abuse patient.[facility] Reason for Visit (unrecogniz ed section [...] BE BASED ON THE PRIMARY CLINICAL RECORDS. [facility] [facility]. provides no warranty or guarantee of the accuracy or completeness of information in this document.
--- NOTE | 2025-06-22 19:19 | CON.PCM.GI_ITS ---
HPI Consult Data Date of Consult: 06/22/25 HPI Narrative Reason for Consultation: Abdominal pain HPI Narrative: TOMAS BAXTER, is a 49 M who presents with a 2-day history of abdominal pain. This is a 49-year-old male with no segment past medical history presents with epigastric abdominal pain. Symptoms began the seventh and has persisted.'s, more spread out and more painful. He presented to the emergency room where he had test that showed lipase of greater than 3000, total bilirubin of 2.62, direct bilirubin of 1.54, AST of 358 and ALT of 463 (no baseline labs available in [facility]). He had an ultrasound performed and the preliminary read mentioned numerous gallstones within the gallbladder. [facility], [facility] Medical History no medical history Home Medications ?Medication ?Instructions ?Recorded ?Last Taken ?Type NK 06/22/25 Unknown History Allergy/AdvReac Type Severity Reaction Status Date / Time No Known Allergies Allergy Verified 06/22/25 13:56 Family History (Updated 06/22/25 @ 17:[address] Prosper Berrios DO) Grandfather Heart disease Abdominal aortic aneurysm Surgical History no surgical history Social History (Updated 06/22/25 @ 17:[address] Prosper Berrios, ) Smoking Status: Never smoker alcohol intake: never substance use type: does not use Lab / Micro Data 06/22/25 14:30 06/22/25 14:30 Labs: Laboratory Results - last 24 hr 06/22/25 14:30: WBC 11.3 H, RBC 5.11, Hgb 15.1, Hct 45.8, MCV 89.6, MCH 29.5, MCHC 33.0, RDW Std Deviation 44.1 H, RDW Coeff of Teresa 13.4, Plt Count 289, MPV 10.9, Immature Gran % (Auto) 0.400, Neut % (Auto) 76.9 H, Lymph % (Auto) 13.7 L, Lincoln % (Auto) 6.8, Eos % (Auto) 1.7, Baso % (Auto) 0.5, Absolute Neuts (auto) 8.7 H, Absolute Lymphs (auto) 1.55, Nucleated RBC % 0, Sodium 137, Potassium 4.0, Chloride 102, Carbon Dioxide 23.7, Anion Gap 11, BUN 14, Creatinine 1.03, Est GFR (MDRD) Non-Af 90, BUN/Creatinine Ratio 13.1, Glucose 109 H, Calcium 9.4, Total Bilirubin 2.62 H, Direct Bilirubin 1.54 H, AST 358 H, ALT 463 H, Alkaline Phosphatase 96, Troponin T High Sens 10, Total Protein 7.0, Albumin 4.2, Globulin 2.8, Lipase > 3000 H 06/22/25 16:23: Troponin T Hi Sens 2 Hr 8 Rhythm Strip Rhythm Strip: Sinus Rhythm Rate: 76 Ectopy: None Imaging Radiology Impression Chest X-Ray 06/22/25 14:55 IMPRESSION: The lateral view is limited by patient motion. Lungs are hypoinflated, but appear clear of acute disease. No pleural effusion or pneumothorax is noted. The cardiomediastinal silhouette is within the normal range. No acute osseous change is seen. No evidence of acute cardiopulmonary disease. Reading Location: [facility] Gallbladder Ultrasound 06/22/25 16:26 IMPRESSION: 1. Cholelithiasis, without evidence of acute cholecystitis. 2. No intra or extrahepatic biliary ductal dilatation. 3. Pancreas is poorly visualized on this exam and not adequately assessed. However, concomitant CT shows prominent peripancreatic fat stranding/edema consistent with acute pancreatitis. 4. Hepatomegaly with diffuse hepatic steatosis. Reading Location: [id number] Abdomen/Pelvis CT 06/22/25 17:36 IMPRESSION: 1. Acute uncomplicated interstitial edematous pancreatitis. 2. Cholelithiasis, without discrete evidence of acute cholecystitis. 3. No significant biliary or pancreatic ductal dilatation. 4. Mild hepatomegaly with diffuse hepatic steatosis. Reading Location: [id number] Assessment & Plan Assessment/Plan (1) Acute gallstone pancreatitis: (2) Abdominal pain: PLAN: 49-year-old male with acute pancreatitis, likely secondary to gallstone obstruction of the pancreaticobiliary ductal system, given the presenting symptoms of abdominal pain, jaundice, and elevated pancreatic and liver enzymes. The presence of jaundice and elevated direct bilirubin, alkaline phosphatase, and transaminases suggests potential choledocholithiasis . * Differential diagnosis includes other causes of pancreatitis, such as hypertriglyceridemia, medication-induced, or idiopathic. However, the constellation of symptoms strongly points towards gallstone pancreatitis * Assessment of severity: Based on presenting symptoms and laboratory findings, patient requires close monitoring for progression to severe pancreatitis, which carries a risk of complications like pancreatic necrosis, infection, organ failure, or pseudocyst formation. Plan: * Close monitoring, pain control, hydration, and further diagnostic workup. * Fluid Resuscitation:?Initiate intravenous (IV) fluid resuscitation with Ringer's lactate. * Pain Management:?Administer IV pain medication (e.g., hydromorphone or fentanyl) as needed for severe abdominal pain. * Nausea/Vomiting:?Administer antiemetics (e.g., ondansetron) as needed. * Further Diagnostic Workup: * If his LFTs continue to go up he may need ERCP. * Consider Early Oral Feeding:?If nausea and vomiting resolve, initiate clear liquids and advance diet as tolerated. * Consider Alcohol Cessation Counseling:?Given the history of heavy alcohol use, counseling and resources for alcohol cessation are recommended once acute pancreatitis resolves. * Cholecystectomy:?If gallstones are confirmed, laparoscopic cholecystectomy should be considered during the initial hospitalization after the acute pancreatitis has resolved * Monitor for Complications:?Closely monitor for signs of worsening pancreatitis, including increasing pain, fever, hemodynamic instability, or worsening jaundice. Monitor for development of complications such as pancreatic necrosis, pseudocysts, or infection. Charges/Coding Visit Charges Inpatient E&M: 47550 Init Hosp L3
[2025-06-22] MEDS: 0.9% Normal Saline (1000mL) 1,000 ML 200 ML IV (19:56)
[2025-06-23] MEDS: 0.9% Normal Saline (1000mL) 1,000 ML 200 ML IV ×2 (00:37→05:35)
[2025-06-23 03:14] VITALS: BP 144/80; PULSE 72; RESP 16; TEMP 36.4; O2SAT 96
[2025-06-23 04:23] LABS: Hematocrit 44.0 % (40-54); Hemoglobin 14.2 g/dL (13.0-16.5); Immature Granulocytes Count 0.050 X10^3/uL (0.0-0.0); Mean Corp Hgb Conc 32.3 g/dL (32-36); Mean Corpuscular Volume 90.9 fL (80-94); Mean Platelet Vol. 11.0 fl (6.2-12.0); NRBC Flagged by Analyzer 0 % (0-5); Platelet Count 293 K/mm3 (150-450); RBC Distribution Width CV 13.9 % (11.6-14.6); RBC Distribution Width SD 46.3 fl (35.1-43.9); Red Blood Count 4.84 M/mm3 (4.6-6.2); White Blood Count 9.8 K/mm3 (4.4-11.0)
[2025-06-23 04:40] LABS: AST(SGOT) 170 U/L (<=37); Alanine Aminotransfer ALT/SGPT 357 U/L (<=46); Albumin, Serum 3.9 g/dL (3.5-5.0); Alkaline Phosphatase 87 U/L (40-129); Anion Gap 9 (5-15); BUN 14 mg/dL (4-19); BUN/Creat Ratio 15.3 RATIO (10-20); Calcium,Total 9.0 mg/dL (7.6-11.0); Carbon Dioxide 25.3 mmol/L (21.0-32.0); Chloride 103 mmol/L (98-108); Estimated Creatinine Clearance 143.07 ml/min (50-250); Globulin 2.6 g/dL (2.2-4.2); Glucose 99 mg/dL (70-99); Potassium 4.1 mmol/L (3.3-5.1)
--- NOTE | 2025-06-23 08:00 | CON.PCM.SX_ITS ---
Assessment & Plan Assessment/Plan (1) Acute gallstone pancreatitis: (2) Cholelithiasis: PLAN: Plan LFTs have improved. Still having epigastric pain lipase pending. Await resolution of pancreatitis prior to surgery. Possibly Wednesday. Patient currently has no other questions. Continue clears Reviewed the anatomy with the patient and discussed the procedure: Robotic/laparoscopic cholecystectomy with possible cholangiograms, possible open. Review risks including but not limited to bleeding, infection, hernia, bile leak, retained gallstones requiring another procedure ERCP- Endoscopic Retrograde Cholangiopancreatography, injury to another organ (bile ducts, common bile duct, small bowel, etc.) and conversion to an open procedure. All questions were answered. Sachi Weeks M.D. Pager: [phone] [facility] [address] [place] [address], [address] [place] [address] Office: [phone] HPI Consult Data Date of Consult: 06/24/25 HPI Narrative HPI Narrative: TOMAS BAXTER, is a 49 M who admitted for gallstone pancreatitis. Patient's LFTs have improved today from admit. Patient states night when the discomfort did happen he thought it was gas pain then by Wednesday morning he did have some numbness in the left arm send did come into the hospital workup cardiac was negative. Patient elevated LFTs and ultrasound showed multiple gallstones normal wall and CAT scan also showed multiple gallstones no obvious inflammation around the gallbladder but pancreatitis and inflammation around the head of the pancreas. Patient states never had pain like this previously denies any pain after eating fatty or greasy foods. [facility] Medical History no medical history Home Medications ?Medication ?Instructions ?Recorded ?Last Taken ?Type NK 06/22/25 Unknown History Allergy/AdvReac Type Severity Reaction Status Date / Time No Known Allergies Allergy Verified 06/22/25 13:56 Family History (Updated 06/22/25 @ 17:[address] Prosper Berrios DO) Grandfather Heart disease Abdominal aortic aneurysm Surgical History no surgical history Social History (Updated 06/22/25 @ 17:[address] Prosper Berrios, ) Smoking Status: Never smoker alcohol intake: never substance use type: does not use ROS Constitutional Constitutional: Reports anorexia; Denies fever(s) Eyes Eyes: Denies loss of vision ENT HEENT: Denies dysphagia Cardiovascular Cardiovascular: Denies chest pain or syncope Respiratory/Chest Respiratory/Chest: Denies cough Gastrointestinal Gastrointestinal: Reports abdominal pain and bloating Genitourinary Genitourinary: Denies dysuria Musculoskeletal Musculoskeletal: Denies joint swelling Integumentary Integumentary: Denies jaundice Neurologic Neurologic: Denies focal weakness Psychiatric Psychiatric: Denies depression Endocrine Endocrinology: Denies palpitations Hematologic/Lymphatic Hematologic/Lymphatic: Denies easy bleeding Physical Exam Const alert, oriented x3 and no apparent distress HEENT normocephalic and head/scalp atraumatic Resp normal respiratory effort Cardio regular rate GI soft to palpation; Negative for non-distended Palpation: tender epigastric; Negative for guarding Extremity no clubbing, cyanosis or edema Skin no rashes or lesions noted Neuro CN's II-XII intact bilaterally Psych mental status grossly normal Lab / Micro Data 06/23/25 04:04 06/23/25 04:04 Labs: Laboratory Results - last 24 hr 06/22/25 14:30: WBC 11.3 H, RBC 5.11, Hgb 15.1, Hct 45.8, MCV 89.6, MCH 29.5, MCHC 33.0, RDW Std Deviation 44.1 H, RDW Coeff of Teresa 13.4, Plt Count 289, MPV 10.9, Immature Gran % (Auto) 0.400, Neut % (Auto) 76.9 H, Lymph % (Auto) 13.7 L, Dougherty % (Auto) 6.8, Eos % (Auto) 1.7, Baso % (Auto) 0.5, Absolute Neuts (auto) 8.7 H, Absolute Lymphs (auto) 1.55, Nucleated RBC % 0, Sodium 137, Potassium 4.0, Chloride 102, Carbon Dioxide 23.7, Anion Gap 11, BUN 14, Creatinine 1.03, Est GFR (MDRD) Non-Af 90, BUN/Creatinine Ratio 13.1, Glucose 109 H, Calcium 9.4, Total Bilirubin 2.62 H, Direct Bilirubin 1.54 H, AST 358 H, ALT 463 H, Alkaline Phosphatase 96, Troponin T High Sens 10, Total Protein 7.0, Albumin 4.2, Globulin 2.8, Lipase > 3000 H 06/22/25 16:23: Troponin T Hi Sens 2 Hr 8 06/23/25 04:04: WBC 9.8, RBC 4.84, Hgb 14.2, Hct 44.0, MCV 90.9, MCH 29.3, MCHC 32.3, RDW Std Deviation 46.3 H, RDW Coeff of Teresa 13.9, Plt Count 293, MPV 11.0, Immature Gran % (Auto) 0.500, Neut % (Auto) 72.6 H, Lymph % (Auto) 17.0 L, Dougherty % (Auto) 7.7, Eos % (Auto) 1.6, Baso % (Auto) 0.6, Absolute Neuts (auto) 7.1, Absolute Lymphs (auto) 1.66, Nucleated RBC % 0, Sodium 137, Potassium 4.1, Chloride 103, Carbon Dioxide 25.3, Anion Gap 9, BUN 14, Creatinine 0.89, Estim Creat Clear Calc 143.07, Est GFR (MDRD) Non-Af 106, BUN/Creatinine Ratio 15.3, Glucose 99, Calcium 9.0, Total Bilirubin 1.60 H, AST 170 H, ALT 357 H, Alkaline Phosphatase 87, Total Protein 6.5, Albumin 3.9, Globulin 2.6, Albumin/Globulin Ratio 1.5 Rhythm Strip Rhythm Strip: Sinus Rhythm Rate: 76 Ectopy: None Imaging Radiology Impression Chest X-Ray 06/22/25 14:55 IMPRESSION: The lateral view is limited by patient motion. Lungs are hypoinflated, but appear clear of acute disease. No pleural effusion or pneumothorax is noted. The cardiomediastinal silhouette is within the normal range. No acute osseous change is seen. No evidence of acute cardiopulmonary disease. [facility] Gallbladder Ultrasound 06/22/25 16:26 IMPRESSION: 1. Cholelithiasis, without evidence of acute cholecystitis. 2. No intra or extrahepatic biliary ductal dilatation. 3. Pancreas is poorly visualized on this exam and not adequately assessed. However, concomitant CT shows prominent peripancreatic fat stranding/edema consistent with acute pancreatitis. 4. Hepatomegaly with diffuse hepatic steatosis. Reading Location: [facility] Abdomen/Pelvis CT 06/22/25 17:36 IMPRESSION: 1. Acute uncomplicated interstitial edematous pancreatitis. 2. Cholelithiasis, without discrete evidence of acute cholecystitis. 3. No significant biliary or pancreatic ductal dilatation. 4. Mild hepatomegaly with diffuse hepatic steatosis. Reading Location: [id number] Charges/Coding Multi Select Codes Visit Charges Visit Charges: 50664 Init Hosp L3
--- NOTE | 2025-06-23 08:36 | CASEMGMT ---
Dx:Gallstone Pancreatitis LACE: 1 6-Clicks: 24 Medical record reviewed and patient evaluated for identification of discharge planning needs. Based on this review, at this time criteria are not present to indicate a need for discharge planning. Will remain available to assist with discharge planning needs as identified or requested.
[2025-06-23 08:46] VITALS: BP 144/86; PULSE 76; RESP 16; TEMP 36.5; O2SAT 97
[2025-06-23 09:05] LABS: Lipase 807 U/L (13-75)
[2025-06-23 11:25] VITALS: BP 150/79; PULSE 75; RESP 16; TEMP 36.7; O2SAT 96
[2025-06-23] MEDS: 0.9% Saline Lock 10 ML Syringe IV (12:18)
--- NOTE | 2025-06-23 13:15 | PCM.PN.HOSP ---
Reason for Visit Chief Complaint: Abdominal pain Subjective Subjective Patient was seen and examined today, he still having some right upper quadrant abdominal pain, I talked briefly with gastroenterology, they do not feel the patient needs an MRCP or an ERCP at this time. General surgery saw the patient and it appears that he may go to surgery on Wednesday for a cholecystectomy. Objective Data Objective Data Vital Signs: Vital Signs Temp Pulse Resp BP Pulse Ox O2 Del Method 98.1 F 75 16 150/79 H 96 Room Air 06/23/25 11:06/23/25 11:06/23/25 11:06/23/25 11:06/23/25 11:06/23/25 11: Oxygen Delivery Method Room Air Weight: 126.6 kg Body Mass Index (BMI) 36.8 Intake & Output: Intake and Output for Last 24 Hours 06/21/25 06/22/25 06/23/25 23:59 23:59 23:59 Intake Total 200 / 200 3530.00 / 3530.00 Balance 200 / 200 3530.00 / 3530.00 Lab / Micro Data 06/23/25 04:04 06/23/25 04:04 Labs: Laboratory Results - last 24 hr 06/22/25 14:30: WBC 11.3 H, RBC 5.11, Hgb 15.1, Hct 45.8, MCV 89.6, MCH 29.5, MCHC 33.0, RDW Std Deviation 44.1 H, RDW Coeff of Teresa 13.4, Plt Count 289, MPV 10.9, Immature Gran % (Auto) 0.400, Neut % (Auto) 76.9 H, Lymph % (Auto) 13.7 L, [place] % (Auto) 6.8, Eos % (Auto) 1.7, Baso % (Auto) 0.5, Absolute Neuts (auto) 8.7 H, Absolute Lymphs (auto) 1.55, Nucleated RBC % 0, Sodium 137, Potassium 4.0, Chloride 102, Carbon Dioxide 23.7, Anion Gap 11, BUN 14, Creatinine 1.03, Est GFR (MDRD) Non-Af 90, BUN/Creatinine Ratio 13.1, Glucose 109 H, Calcium 9.4, Total Bilirubin 2.62 H, Direct Bilirubin 1.54 H, AST 358 H, ALT 463 H, Alkaline Phosphatase 96, Troponin T High Sens 10, Total Protein 7.0, Albumin 4.2, Globulin 2.8, Lipase > 3000 H 06/22/25 16:23: Troponin T Hi Sens 2 Hr 8 06/23/25 04:04: WBC 9.8, RBC 4.84, Hgb 14.2, Hct 44.0, MCV 90.9, MCH 29.3, MCHC 32.3, RDW Std Deviation 46.3 H, RDW Coeff of Teresa 13.9, Plt Count 293, MPV 11.0, Immature Gran % (Auto) 0.500, Neut % (Auto) 72.6 H, Lymph % (Auto) 17.0 L, [place] % (Auto) 7.7, Eos % (Auto) 1.6, Baso % (Auto) 0.6, Absolute Neuts (auto) 7.1, Absolute Lymphs (auto) 1.66, Nucleated RBC % 0, Sodium 137, Potassium 4.1, Chloride 103, Carbon Dioxide 25.3, Anion Gap 9, BUN 14, Creatinine 0.89, Estim Creat Clear Calc 143.07, Est GFR (MDRD) Non-Af 106, BUN/Creatinine Ratio 15.3, Glucose 99, Calcium 9.0, Total Bilirubin 1.60 H, AST 170 H, ALT 357 H, Alkaline Phosphatase 87, Total Protein 6.5, Albumin 3.9, Globulin 2.6, Albumin/Globulin Ratio 1.5, Lipase 807 H Radiography Diagnostic Testing: Radiology Impression Chest X-Ray 06/22/25 14:55 IMPRESSION: The lateral view is limited by patient motion. Lungs are hypoinflated, but appear clear of acute disease. No pleural effusion or pneumothorax is noted. The cardiomediastinal silhouette is within the normal range. No acute osseous change is seen. No evidence of acute cardiopulmonary disease. Reading Location: [facility]1 Gallbladder Ultrasound 06/22/25 16:26 IMPRESSION: 1. Cholelithiasis, without evidence of acute cholecystitis. 2. No intra or extrahepatic biliary ductal dilatation. 3. Pancreas is poorly visualized on this exam and not adequately assessed. However, concomitant CT shows prominent peripancreatic fat stranding/edema consistent with acute pancreatitis. 4. Hepatomegaly with diffuse hepatic steatosis. Reading Location: [facility] Abdomen/Pelvis CT 06/22/25 17:36 IMPRESSION: 1. Acute uncomplicated interstitial edematous pancreatitis. 2. Cholelithiasis, without discrete evidence of acute cholecystitis. 3. No significant biliary or pancreatic ductal dilatation. 4. Mild hepatomegaly with diffuse hepatic steatosis. Reading Location: [facility] Rhythm Strip Rhythm Strip: Sinus Rhythm Rate: 76 Ectopy: None Physical Exam Const alert, oriented x3, no apparent distress and healthy appearing General Appearance: cooperative, well kempt and well developed Orientation / Consciousness: awake, oriented to person, oriented to place and oriented to time HEENT normocephalic, head/scalp atraumatic and moist oral mucous membranes Eyes PERRL, EOMs intact bilaterally and conjunctivae normal Neck supple, no JVD and thyroid normal General: trachea midline Resp normal respiratory effort, no retractions, no use of accessory muscles and clear to auscultation bilaterally Auscultation: Negative for rales, rhonchi or wheezes Cardio regular rate, regular rhythm, S1 normal heart sound, S2 normal heart sound, no murmurs, no rub and no gallops GI normal to inspection, nondistended, normoactive bowel sounds, soft to palpation and non-distended GI Narrative: There is some tenderness to palpation over the right upper quadrant extending into the mid quadrant of the abdomen Extremity no clubbing, cyanosis or edema Skin no rashes or lesions noted General Skin Exam: no breakdown Neuro oriented x3, CN's II-XII intact bilaterally, moves all extremities, no focal motor deficits and no sensory deficits noted Sensorium / Orientation: awake and alert Speech: speech normal Psych affect normal Assessment & Plan Assessment/Plan (1) Acute gallstone pancreatitis: PLAN: Plan 1. Gallstone pancreatitis from suspected passed gallstone-continue supportive treatment including fluids and pain meds if needed, patient's lipase this morning was improved #2 cholelithiasis-General Surgery would like the patient's pancreatitis to be resolved before take him to surgery for cholecystectomy. Continue supportive care. Total time spent by myself addressing the patient's medical issues, reviewing all of his data, and collaborating the patient's care team: 35 minutes Charges/Coding Visit Charges Inpatient E&M: 40880 Subs Hosp L2
[2025-06-23] MEDS: 0.9% Normal Saline (1000mL) 1,000 ML 125 ML IV ×2 (14:01→22:26)
[2025-06-23 15:01] VITALS: BP 135/79; PULSE 77; RESP 16; TEMP 36.6; O2SAT 95
[2025-06-23 21:00] VITALS: BP 150/92; PULSE 76; RESP 18; TEMP 36.9; O2SAT 94
[2025-06-24 03:00] VITALS: BP 142/81; PULSE 72; RESP 19; TEMP 36.8; O2SAT 96
[2025-06-24] MEDS: 0.9% Normal Saline (1000mL) 1,000 ML 125 ML IV (06:28)
--- NOTE | 2025-06-24 09:14 | PN.SURG_ITS ---
Subjective Subjective Patient still requiring pain meds but every 6 hours. But otherwise states overall his pain is improved. Patient is tolerating clears. Objective Data Objective Data Vital Signs: Vital Signs Temp Pulse Resp BP Pulse Ox O2 Del Method 98.2 F 72 19 H 142/81 H 96 Room Air 06/24/25 03:00 06/24/25 03:00 06/24/25 03:00 06/24/25 03:00 06/24/25 03:00 06/24/25 03:00 Oxygen Delivery Method Room Air Weight: 279 lb 1.683 oz Body Mass Index (BMI) 36.8 Intake & Output: Intake and Output for Last 24 Hours 06/22/25 06/23/25 06/24/25 23:59 23:59 23:59 Intake Total 200 / 200 5130.00 / 5530.00 1650 / 1650 Balance 200 / 200 5130.00 / 5530.00 1650 / 1650 Lab / Micro Data 06/23/25 04:04 06/23/25 04:04 Rhythm Strip Rhythm Strip: Sinus Rhythm Rate: 76 Ectopy: None Physical Exam Const oriented x3 and no apparent distress Resp normal respiratory effort Cardio regular rate GI soft to palpation GI Narrative: Tender to palpation epigastric, no peritoneal signs Inspection: Negative for abdominal distention Assessment & Plan Assessment/Plan (1) Acute gallstone pancreatitis: (2) Cholelithiasis: PLAN: Plan LFTs pending. Patient states pain is improved from yesterday. Plan for OR tomorrow. Reviewed the anatomy with the patient and discussed the procedure: Robotic/laparoscopic cholecystectomy with possible cholangiograms, possible open. Review risks including but not limited to bleeding, infection, hernia, bile leak, retained gallstones requiring another procedure ERCP- Endoscopic Retrograde Cholangiopancreatography, injury to another organ (bile ducts, common bile duct, small bowel, etc.) and conversion to an open procedure. All questions were answered. Sachi Weeks M.D. Pager: [phone] [facility] [address] [place] [address], [address] [place] [id number] Office: [phone] Charges/Coding Visit Charges Inpatient E&M: 15250 Subs Hosp L2
[2025-06-24 09:46] VITALS: BP 139/71; PULSE 83; RESP 16; TEMP 37; O2SAT 97
[2025-06-24 10:03] LABS: AST(SGOT) 50 U/L (<=37); Alanine Aminotransfer ALT/SGPT 203 U/L (<=46); Albumin, Serum 3.6 g/dL (3.5-5.0); Alkaline Phosphatase 79 U/L (40-129); Anion Gap 9 (5-15); BUN 9 mg/dL (4-19); BUN/Creat Ratio 9.9 RATIO (10-20); Bilirubin, Direct 0.44 mg/dL (0.00-0.30); Calcium,Total 8.8 mg/dL (7.6-11.0); Carbon Dioxide 24.6 mmol/L (21.0-32.0); Chloride 102 mmol/L (98-108); Estimated Creatinine Clearance 144.70 ml/min (50-250); Globulin 2.9 g/dL (2.2-4.2); Glucose 123 mg/dL (70-99); Potassium 3.7 mmol/L (3.3-5.1)
[2025-06-24] MEDS: 0.9% Normal Saline (1000mL) 1,000 ML 100 ML IV ×2 (13:49→22:44)
[2025-06-24 14:18] VITALS: BP 154/86; PULSE 85; RESP 16; TEMP 36.6; O2SAT 100
--- NOTE | 2025-06-24 16:28 | PCM.PN.HOSP ---
Reason for Visit Chief Complaint: Abdominal pain Subjective Subjective Patient was seen and examined today, he is due to have a cholecystectomy tomorrow, patient states his abdominal pain is still present but it is not as bad as it was on admission. Objective Data Objective Data Vital Signs: Vital Signs Temp Pulse Resp BP Pulse Ox O2 Del Method 97.9 F 85 16 154/86 H 100 Room Air 06/24/25 14:18 06/24/25 14:18 06/24/25 14:18 06/24/25 14:18 06/24/25 14:18 06/24/25 14:18 Oxygen Delivery Method Room Air Weight: 126.6 kg Body Mass Index (BMI) 36.8 Intake & Output: Intake and Output for Last 24 Hours 06/22/25 06/23/25 06/24/25 23:59 23:59 23:59 Intake Total 200 / 200 5130.00 / 5530.00 3070 / 3070 Balance 200 / 200 5130.00 / 5530.00 3070 / 3070 Lab / Micro Data 06/23/25 04:04 06/24/25 09:21 Labs: Laboratory Results - last 24 hr 06/24/25 09:21: Sodium 136, Potassium 3.7, Chloride 102, Carbon Dioxide 24.6, Anion Gap 9, BUN 9, Creatinine 0.88, Estim Creat Clear Calc 144.70, Est GFR (MDRD) Non-Af 107, BUN/Creatinine Ratio 9.9 L, Glucose 123 H, Calcium 8.8, Total Bilirubin 1.02, Direct Bilirubin 0.44 H, AST 50 H, ALT 203 H, Alkaline Phosphatase 79, Total Protein 6.5, Albumin 3.6, Globulin 2.9 Rhythm Strip Rhythm Strip: Sinus Rhythm Rate: 76 Ectopy: None Physical Exam Narrative alert, oriented x3, no apparent distress and healthy appearing General Appearance: cooperative, well kempt and well developed Orientation / Consciousness: awake, oriented to person, oriented to place and oriented to time HEENT normocephalic, head/scalp atraumatic and moist oral mucous membranes Eyes PERRL, EOMs intact bilaterally and conjunctivae normal Neck supple, no JVD and thyroid normal General: trachea midline Resp normal respiratory effort, no retractions, no use of accessory muscles and clear to auscultation bilaterally Auscultation: Negative for rales, rhonchi or wheezes Cardio regular rate, regular rhythm, S1 normal heart sound, S2 normal heart sound, no murmurs, no rub and no gallops GI normal to inspection, nondistended, normoactive bowel sounds, soft to palpation and non-distended GI Narrative: There is some tenderness to palpation over the right upper quadrant extending into the mid quadrant of the abdomen Extremity no clubbing, cyanosis or edema Skin no rashes or lesions noted General Skin Exam: no breakdown Neuro oriented x3, CN's II-XII intact bilaterally, moves all extremities, no focal motor deficits and no sensory deficits noted Sensorium / Orientation: awake and alert Speech: speech normal Psych affect normal Assessment & Plan Assessment/Plan (1) Acute gallstone pancreatitis: PLAN: Plan 1. Gallstone pancreatitis from suspected passed gallstone-continue supportive treatment including fluids and pain meds if needed #2 cholelithiasis-General Surgery is planning a cholecystectomy tomorrow Total time spent by myself addressing the patient's medical issues, reviewing all of his data, and collaborating the patient's care team: 35 minutes Charges/Coding Visit Charges Inpatient E&M: 56823 Subs Hosp L2
[2025-06-24 20:36] VITALS: BP 139/81; PULSE 84; RESP 16; TEMP 36.7; O2SAT 99
[2025-06-24] MEDS: 0.9% Saline Lock 10 ML Syringe IV (22:43)
[2025-06-25] VITALS (15 sets, daily range): BP systolic 111–144; BP diastolic 64–91; PULSE 74–92; RESP 14–18; TEMP 36.1–36.8; O2SAT 77–98; BMI 36.8
[2025-06-25 04:40] LABS: Hematocrit 40.7 % (40-54); Hemoglobin 13.5 g/dL (13.0-16.5); Immature Granulocytes Count 0.030 X10^3/uL (0.0-0.0); Mean Corp Hgb Conc 33.2 g/dL (32-36); Mean Corpuscular Volume 89.3 fL (80-94); Mean Platelet Vol. 11.3 fl (6.2-12.0); NRBC Flagged by Analyzer 0 % (0-5); Platelet Count 263 K/mm3 (150-450); RBC Distribution Width CV 13.8 % (11.6-14.6); RBC Distribution Width SD 45.2 fl (35.1-43.9); Red Blood Count 4.56 M/mm3 (4.6-6.2); White Blood Count 9.1 K/mm3 (4.4-11.0)
[2025-06-25 05:07] LABS: AST(SGOT) 32 U/L (<=37); Alanine Aminotransfer ALT/SGPT 147 U/L (<=46); Albumin, Serum 3.5 g/dL (3.5-5.0); Alkaline Phosphatase 74 U/L (40-129); Anion Gap 11 (5-15); BUN 8 mg/dL (4-19); BUN/Creat Ratio 8.9 RATIO (10-20); Bilirubin, Direct 0.39 mg/dL (0.00-0.30); Calcium,Total 8.8 mg/dL (7.6-11.0); Carbon Dioxide 23.7 mmol/L (21.0-32.0); Chloride 104 mmol/L (98-108); Estimated Creatinine Clearance 149.80 ml/min (50-250); Globulin 2.9 g/dL (2.2-4.2); Glucose 105 mg/dL (70-99); Potassium 3.7 mmol/L (3.3-5.1)
--- NOTE | 2025-06-25 08:18 | PN.SURG_ITS ---
Subjective Subjective Patient states abdominal pain still improving, taking Tylenol for pain. Objective Data Objective Data Vital Signs: Vital Signs Temp Pulse Resp BP Pulse Ox O2 Del Method 98.3 F 78 16 141/81 H 98 Room Air 06/25/25 06:14 06/25/25 06:14 06/25/25 06:14 06/25/25 06:14 06/25/25 06:14 06/25/25 06:14 Oxygen Delivery Method Room Air Weight: 279 lb 1.683 oz Body Mass Index (BMI) 36.8 Intake & Output: Intake and Output for Last 24 Hours 06/23/25 06/24/25 06/25/25 23:59 23:59 23:59 Intake Total 5130.00 / 5530.00 4261.67 / 4261.67 Balance 5130.00 / 5530.00 4261.67 / 4261.67 Lab / Micro Data 06/25/25 04:07 06/25/25 04:07 Labs: Laboratory Results - last 24 hr 06/24/25 09:21: Sodium 136, Potassium 3.7, Chloride 102, Carbon Dioxide 24.6, Anion Gap 9, BUN 9, Creatinine 0.88, Estim Creat Clear Calc 144.70, Est GFR (MDRD) Non-Af 107, BUN/Creatinine Ratio 9.9 L, Glucose 123 H, Calcium 8.8, Total Bilirubin 1.02, Direct Bilirubin 0.44 H, AST 50 H, ALT 203 H, Alkaline Phosphatase 79, Total Protein 6.5, Albumin 3.6, Globulin 2.9 06/25/25 04:07: WBC 9.1, RBC 4.56 L, Hgb 13.5, Hct 40.7, MCV 89.3, MCH 29.6, MCHC 33.2, RDW Std Deviation 45.2 H, RDW Coeff of Teresa 13.8, Plt Count 263, MPV 11.3, Immature Gran % (Auto) 0.300, Neut % (Auto) 62.2, Lymph % (Auto) 20.5, M varsha % (Auto) 11.7 H, Eos % (Auto) 4.7, Baso % (Auto) 0.6, Absolute Neuts (auto) 5.6, Absolute Lymphs (auto) 1.86, Nucleated RBC % 0, Sodium 139, Potassium 3.7, Chloride 104, Carbon Dioxide 23.7, Anion Gap 11, BUN 8, Creatinine 0.85, Estim Creat Clear Calc 149.80, Est GFR (MDRD) Non-Af 108, BUN/Creatinine Ratio 8.9 L, Glucose 105 H, Calcium 8.8, Total Bilirubin 0.81, Direct Bilirubin 0.39 H, AST 32, ALT 147 H, Alkaline Phosphatase 74, Total Protein 6.4, Albumin 3.5, Globulin 2.9 Rhythm Strip Rhythm Strip: Sinus Rhythm Rate: 76 Ectopy: None Physical Exam Const oriented x3 and no apparent distress Resp normal respiratory effort Cardio regular rate GI soft to palpation GI Narrative: Minimal tender to palpation epigastric, no peritoneal signs Inspection: Negative for abdominal distention Assessment & Plan Assessment/Plan (1) Acute gallstone pancreatitis: (2) Cholelithiasis: PLAN: Plan LFTs still improving. OR today for laparoscopic/robotic cholecystectomy. Sachi eWeks M.D. Pager: [phone] [facility] [address] [place] [address], [facility], [address] [place] [id number] Office: [phone]
[2025-06-25] MEDS: 0.9% Normal Saline (1000mL) 1,000 ML 100 ML IV ×2 (09:09→22:13)
--- NOTE | 2025-06-25 11:17 | PN.HOSP_ITS ---
Reason for Visit Chief Complaint: Abdominal pain Objective Data Objective Data Vital Signs: Vital Signs Temp Pulse Resp BP Pulse Ox O2 Del Method 98.1 F 78 16 144/83 H 98 Room Air 06/25/25 11:16 06/25/25 11:16 06/25/25 11:16 06/25/25 11:16 06/25/25 11:16 06/25/25 11:16 Oxygen Delivery Method Room Air Weight: 279 lb 1.683 oz Body Mass Index (BMI) 36.8 Intake & Output: Intake and Output for Last 24 Hours 06/23/25 06/24/25 06/25/25 23:59 23:59 23:59 Intake Total 5130.00 / 5530.00 4261.67 / 4261.67 1006.67 / 1006.67 Balance 5130.00 / 5530.00 4261.67 / 4261.67 1006.67 / 1006.67 Lab / Micro Data 06/25/25 04:07 06/25/25 04:07 Labs: Laboratory Results - last 24 hr 06/25/25 04:07: WBC 9.1, RBC 4.56 L, Hgb 13.5, Hct 40.7, MCV 89.3, MCH 29.6, MCHC 33.2, RDW Std Deviation 45.2 H, RDW Coeff of Teresa 13.8, Plt Count 263, MPV 11.3, Immature Gran % (Auto) 0.300, Neut % (Auto) 62.2, Lymph % (Auto) 20.5, M varsha % (Auto) 11.7 H, Eos % (Auto) 4.7, Baso % (Auto) 0.6, Absolute Neuts (auto) 5.6, Absolute Lymphs (auto) 1.86, Nucleated RBC % 0, Sodium 139, Potassium 3.7, Chloride 104, Carbon Dioxide 23.7, Anion Gap 11, BUN 8, Creatinine 0.85, Estim Creat Clear Calc 149.80, Est GFR (MDRD) Non-Af 108, B UN/Creatinine Ratio 8.9 L, Glucose 105 H, Calcium 8.8, Total Bilirubin 0.81, D irect Bilirubin 0.39 H, AST 32, ALT 147 H, Alkaline Phosphatase 74, Total Protein 6.4, Albumin 3.5, Globulin 2.9 Rhythm Strip Rhythm Strip: Sinus Rhythm Rate: 76 Ectopy: None Physical Exam Narrative Seen and examined Patient denies any abdominal pain. No nausea or vomiting or abdominal distention. Scheduled for surgery today Physical exam General: Alert, Oriented x3, Cooperative HEENT: Atraumatic, PERRLA, EOMI, Normocephalic. Oral: No Gingival or Mucosal Lesions/ Ulcerations Neck: Supple, No JVD, Negative Carotid Bruits Chest wall/Lungs: Air entry diminished in bilateral lung bases. No crepitation/rhonchi Cardiovascular: Regular rate and rhythm, Normal S1,S2, No M/G/R Abdomen: Bowel Sounds Present, Soft, no acute tenderness over right upper quadrant/epigastrium. Nondistended : No dysuria. No renal angle tenderness. No suprapubic tenderness. Extremities: No edema, Capillary Refill Less than 3 Seconds Skin: No rashes, No breakdown Musculoskeletal: No Tenderness to Palpation of Joints or Extremities Neurological: Cranial nerves II-XII grossly intact, DTR 2+/4. No acute focal neurological deficit. Psych/Mental Status: Normal Affect, Appropriate. Assessment & Plan Assessment/Plan (1) Acute gallstone pancreatitis: PLAN: Plan This 49-year-old gentleman is being admitted for right upper quadrant discomfort with numbness in the left arm. Hospital cardiac workup was negative. Gallstone pancreatitis 1. Gallstone pancreatitis from suspected passed gallstone: Right upper quadrant pain/tenderness has resolved. Ultrasound showed multiple gallstones, normal wall. CT scan also showed multiple gallstones but no obvious inflammation of the gallbladder. There was inflammation around the head of the pancreas therefore pancreatitis and gallstone pancreatitis. Liver chemistry shows improvement in total bilirubin, ALT and AST. Lipase was more than 3000. -continue supportive treatment including fluids and pain meds if needed #2 cholelithiasis-was evaluated by surgeon Dr. Sachi Weeks. Plan for laparoscopic/robotic cholecystectomy Laboratory Results 06/25/25 04:07: WBC 9.1, RBC 4.56 L, Hgb 13.5, Hct 40.7, MCV 89.3, MCH 29.6, MCHC 33.2, RDW Std Deviation 45.2 H, RDW Coeff of Teresa 13.8, Plt Count 263, MPV 11.3, Immature Gran % (Auto) 0.300, Neut % (Auto) 62.2, Lymph % (Auto) 20.5, M varsha % (Auto) 11.7 H, Eos % (Auto) 4.7, Baso % (Auto) 0.6, Absolute Neuts (auto) 5.6, Absolute Lymphs (auto) 1.86, Nucleated RBC % 0, Sodium 139, Potassium 3.7, Chloride 104, Carbon Dioxide 23.7, Anion Gap 11, BUN 8, Creatinine 0.85, Estim Creat Clear Calc 149.80, Est GFR (MDRD) Non-Af 108, BUN/Creatinine Ratio 8.9 L, Glucose 105 H, Calcium 8.8, Total Bilirubin 0.81, Direct Bilirubin 0.39 H, AST 32, ALT 147 H, Alkaline Phosphatase 74, Total Protein 6.4, Albumin 3.5, Globulin 2.9 Charges/Coding Visit Charges Inpatient E&M: 79236 Subs Hosp L2
[2025-06-25] MEDS: 0.9% Normal Saline (1000mL) 1,000 ML 15 ML IV (13:44)
[2025-06-25] MEDS: INDOCYANINE GREEN 3.75 MG in Syringe 1.5 ML 999 MG IV (13:44)
--- NOTE | 2025-06-25 14:00 | GALL_PTH ---
PATIENT: TOMAS BAXTER LOC: MS3 U#:[id number] AGE/SX: 49/M ROOM: DC314 RE06/22/[address]: Dr. Nathanael Killian MD : [id number] BED: 1 DIS: 06/27/2025 SPEC #: [id number] RECD: 06/26/25 07:29 STATUS: TOD RENik #: [id number] MOISES: 06/25/25 14:[address]: Sachi Weeks DEPT: SURGICAL PATHOLOGY RECD BY: William Rojo ENTERED: 06/26/25 09:34 SP TYPE: GARC[facility]A LUKE DR: DO Dr. Russ Wells, DO Dr. Nathanael Killian MD No Primary Care Phys Tissues: A - Gallbladder, NOS Procedures: Surgery Specimen Level III HEADER OPERATION: Laparoscopic robotic cholecystectomy PRE-OP DIAGNOSIS: Acute gallstones pancreatitis, cholelithiasis TISSUE SUBMITTED: A- Gallbladder and gallstones MICROSCOPIC DIAGNOSIS A. Gallbladder, cholecystectomy: - Chronic cholecystitis, cholelithiasis. MICROSCOPIC DESCRIPTION Slides are reviewed. GROSS DESCRIPTION A. Received in formalin labeled with the patient's name and date of . Designated as gallbladder and gallstones is a 10.3 x 3.1 x 2.4 cm focally disrupted, cunningham to fatty gallbladder with attached cystic duct (inked black, shaved); the patency is unable to be determined. A lymph node is not present. Numerous multifaceted to irregular, pigmented choleliths are identified within the specimen and specimen container, 0.1 cm to 3.6 cm. The mucosa is cunningham to brown and granular with patchy apparent ulcerations and a maximum wall thickness of 0.3 cm. Cholesterolosis is not present. Lode [place]er sections are submitted in 1 cassette. MD 06/26/2025 CPT:79000
--- NOTE | 2025-06-25 14:12 | PCM.PRE.AN2 ---
ASA Classification* ASA Classification ASA Classification: 1 Assessment & Plan Anesthesia* Anesthesia Assessment Anesthesia Assessment: Discussed sedation and/or anesthesia options, risks, benefits, and alternatives with patient/parents/legal guardian/POA. Questions invited. The patient/parents/legal guardian/POA seems to understand and agrees to proceed with anesthesia plan. Reviewed the physical assessment, medical history, allergy history and patient home medications list prior to surgery/procedure/anesthetic and documented any changes. Performed airway and anesthesia risk assessments. Anesthesia Type Anesthesia Type: General History Source History Obtained from:: Patient and Chart Anesthesia Focused Assessment* Temperature: 98.1 F Pulse Rate: 78 Blood Pressure: 144/83 Respiratory Rate: 16 Pulse Ox: 98 Oxygen Delivery Method: Room Air Airway Assessment Mouth opens: >3 cm Mallampati Score: III Teeth Condition: Missing (Patient has several missing teeth. Rest are tight.) Neck Range of motion (ROM): Full ROM Labs Anesthesia Preop lab: CBC WBC 9.1 K/mm3 (4.4-11.0) 06/25/25 04:07 06/25/25 RBC 4.56 M/mm3 (4.6-6.2) L 06/25/25 04:07 06/25/25 Hgb 13.5 g/dL (13.0-16.5) 06/25/25 04:07 06/25/25 Hct 40.7 % (40-54) 06/25/25 04:07 06/25/25 Plt Count 263 K/mm3 (150-450) 06/25/25 04:07 06/25/25 CHEMISTRY Potassium 3.7 mmol/L (3.3-5.1) 06/25/25 04:07 06/25/25 Sodium 139 mmol/L (133-145) 06/25/25 04:07 06/25/25 BUN 8 mg/dL (4-19) 06/25/25 04:07 06/25/25 Creatinine 0.85 mg/dL (0.70-1.20) 06/25/25 04:07 06/25/25 Glucose 105 mg/dL (70-99) H 06/25/25 04:07 06/25/25 COAG Pre-Assessment Diagnosis/Proposed Procedure Planned Operative Procedure(s): Robotic laparoscopic cholecystectomy with cholangiograms Anesthesia History 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 When Was Last Pacemaker Check QUESTION #4 FULL TEXT: You/Your Family Experience fever (hyperthermia) with Anesthesia Last Oral Intake Last Oral intake: Last Oral Intake NPO since 00:00 06/25/25 11:59 Meds taken in AM with sips of No 06/25/25 11:59 water? Meds patient instructed to take am of surgery Any additional information?: Yes Meds taken in AM with sips of water?: Yes Meds patient instructed to take am of surgery: Acetaminophen PONV PONV - maintenance supervisor mechanical: PONV - maintenance supervisor mechanical Female HX of Motion Sickness HX of N/V After Surgery Non-Smoker Duration of Surgery greater than 60 minutes Number of Risk Factors PONV Score Height & Weight Height & Weight: Anesthesia: Height & Weight Height 6 ft 1 in 06/25/25 11:59 Weight: 126.6 kg 06/25/25 11:59 Body Mass Index (BMI) 36.8 06/25/25 11:59 Respiratory Assessment Respiratory Assessment - maintenance supervisor mechanical: Respiratory Tract Infection Hx - maintenance supervisor mechanical Hx Respiratory Tract Infection No 06/24/25 20:30 STOP Sleep Apnea STOP Sleep Apnea - maintenance supervisor mechanical: STOP Sleep Apnea - maintenance supervisor mechanical Hx Hypertension No 06/22/25 19:24 Hx Sleep Apnea No 06/22/25 19:24 CPAP BIPAP Do you snore loudly (louder Yes 06/22/25 19:24 than talking or can be heard Do you often feel tired/ Yes 06/22/25 19:24 fatigued/ sleepy during daytime? Has anyone observed you stop No 06/22/25 19:24 breathing during sleep? STOP Results Positive 06/22/25 19:24 QUESTION #5 FULL TEXT : Do you snore loudly (louder than talking or can be heard through closed doors)? Tobacco Use History Tobacco Use History - maintenance supervisor mechanical: Tobacco Use History - maintenance supervisor mechanical Tobacco Use Smoking Status Never smoker 06/22/25 19:24 Hx Tobacco Use No 06/22/25 19:24 Years Smoking Packs Smoked per Day Smoking Cessation Date was within the last 15 years Hx Smoking Cessation Date Hx Smoking Cessation Counseling Hematologic Medial History Hematologic Hx - maintenance supervisor mechanical: Hematologic Medical Hx - machinist supervisor Hx of Blood Transfusion No 06/22/25 19:24 Hx of Transfusion in last 3 No 06/22/25 19:24 Months Date of Last Transfusion (if within last 3 months) Ever experience any problems No 06/22/25 19:24 with transfusion(s)? Specify any problems Hx of Preganancy in last 3 N/A 06/22/25 19:24 Months Nurse Filling Out Transfusion [facility] 06/22/25 19:24 & Questions: Date: 06/22/25 06/22/25 19:24 Time: :06/22/25 19:24 Patient unable to answer at this time (ie. confused, unrespo /Reproduction History /Reproductive History - maintenance supervisor mechanical: /Reproductive Hx- maintenance supervisor mechanical Hx Now Gestational Age (in weeks): EDC: Hx Hx Para Hx Section SAB Active Medications Active Medications: Current Medications Generic Name Dose Route Start Last Admin Trade Name Freq PRN Reason Stop Dose Admin Acetaminophen 1,000 mg 06/22/25 22:00 06/25/25 05:53 Acetaminophen 500 Mg Tablet PO 1,000 mg Q8 TOI Administration Sodium Chloride 250 mls @ 15 mls/hr 06/22/25 19:41 IV .[id number] PRN Saline Flush Sodium Chloride 250 mls @ 15 mls/hr 06/22/25 19:41 IV .[id number] PRN Additional IVPB Infusion Sodium Chloride 1,000 mls @ 100 mls/hr 06/23/25 13:20 06/25/25 13:26 IV 0 mls/hr .Q10H TOI Infusion Sodium Chloride 1,000 mls @ 15 mls/hr 06/25/25 13:35 06/25/25 13:44 IV 15 mls/hr .Q48H TOI Administration Ketorolac Tromethamine 15 mg 06/22/25 19:21 06/24/25 20:27 Ketorolac 15 Mg/Ml Vial IV 06/27/25 19:21 15 mg Q6H PRN PRN Administration Pain Score 1-10 Morphine Sulfate 2 - 4 mg 06/22/25 19:21 06/23/25 12:17 Morphine 2 Mg/Ml Syringe IV 2 mg Q3H PRN PRN Administration Pain Score 6-10 Morphine Sulfate 2 - 4 mg 06/22/25 19:26 06/23/25 23:10 Morphine 4 Mg/Ml Syringe IV 4 mg Q3H PRN PRN Administration Pain Score 6-10 Ondansetron HCl 4 mg 06/22/25 19:21 06/23/25 05:38 Ondansetron 4 Mg/2 Ml Vial IV 4 mg Q8H PRN PRN Administration NAUSEA/VOMITING Oxycodone HCl 10 mg 06/23/25 13:20 Oxycodone 5 Mg Tablet PO Q4H PRN PRN Pain Score 4-10 Sodium Chloride 10 - 40 ml 06/22/25 19:41 06/24/25 22:43 0.9% Saline Lock 10 Ml Syringe IV 10 ml UD PRN Administration SALINE FLUSH PFSH Medical History no medical history Home Medications ?Medication ?Instructions ?Recorded ?Last Taken ?Type NK 06/22/25 Unknown History Allergy/AdvReac Type Severity Reaction Status Date / Time No Known Allergies Allergy Verified 06/22/25 13:56 Family History Grandfather Heart disease Abdominal aortic aneurysm Surgical History (Updated 06/25/25 @ 14:[address] Itz Rodriguez MD) S/P tonsillectomy H/O hemorrhoidectomy Surgical History no surgical history Social History Smoking Status: Never smoker alcohol intake: never substance use type: does not use Review of Systems (Anesthesia) ROS Narrative System reviewed and no additional complaints, except as documented.
[2025-06-25] MEDS: Midazolam 2 MG/2 ML Syringe IV (14:57)
[2025-06-25] MEDS: Piperacil/Tazobactam 3.375 GM/50 ML ML IV (15:00)
[2025-06-25] MEDS: Piperacil/Tazobactam 3.375 GM in 0.9% Normal Saline (50mL MB+) 50 ML IV ×2 (15:05→22:03)
--- NOTE | 2025-06-25 15:15 | RAD_ITS ---
PROCEDURE: CHOLANGIOGRAM/ O R,INITIAL 06/25/2025 REASON FOR EXAM: CHOLANGIOGRAM TECHNIQUE: CHOLANGIOGRAM/ O R,INITIAL COMPARISON: None. FINDINGS: Intraoperative fluoroscopy for cholangiogram was performed. 18.4 seconds of fluoroscopic time. 18.77 mGy. See procedure report for full details. RAD/Cholangiogram/ O R,Initial IMPRESSION: As above. Reading Location: [id number]
[2025-06-25] MEDS: fentaNYL 100 MCG/2 ML Ampul 300 MCG IV (16:36)
[2025-06-25] MEDS: dexMEDEtomidine 200 MCG/2 ML ML 20 MCG IV (16:47)
--- NOTE | 2025-06-25 17:08 | PCM.POST.ANE ---
Anesthesia: Postop Eval I Current Vital Signs Temperature: 97 F Pulse Rate: 90 Blood Pressure: 113/64 Respiratory Rate: 14 Pulse Ox: 92 Assessment Airway patent: Yes Spontaneous unlabored respirations: Yes nausea: No Vomiting: No Anesthesia Complication: No Fluid Hydration Crystalloid volume administer (ml): 1,200 Total IV fluid infused: 1,200 Progress Note Anesthesia document: Postop Eval 1 completed: Yes
--- NOTE | 2025-06-25 17:20 | PCM.OPRPT ---
Operative Report (Standard) Operative Information Date of Procedure: 06/25/25 Pre-Operative Diagnosis: Gallstone pancreatitis, cholelithiasis Post-Operative Diagnosis: Same Surgery/Procedure Performed: Robotic cholecystectomy with cholangiograms truck greaser: Yes Technician Support Engineer: Tereza Coats Tasks completed by assistant women's basketball coach: Opening & closing Type of Anesthesia: General/Supplemental RN Documented Start/Stop Times: Operation Date: 06/25/25 14:00 Case Time Into Pre-Op 06/25/25 13:31 Anesthesia Start 06/25/25 14:46 Into Room 06/25/25 14:46 Procedure Start 06/25/25 15:08 Procedure End 06/25/25 16:50 Anesthesia End 06/25/25 17:01 Out of Room 06/25/25 17:01 Procedure Start Time: 15:08 Procedure Stop Time: 16:50 Select all DRAINS/GRAFTS/IMPLANTS that apply: None Special Medications: Zosyn 3.375 g IV x 1 Estimated Blood Loss: 10 cc Specimen collected: Yes Description of specimen(s) removed: Gallbladder and stones Description of surgery: Indications: this is a 49 year-old male who developed abdominal pain/nausea/vomiting and on workup was found to have cholelithiasis, gallstone pancreatitis, initial elevated liver functions which did decrease on their own. Laparoscopic cholecystectomy with cholangiograms was elected. Description procedure: The patient was placed on operating table in supine position. A timeout was completed verifying correct patient, procedure, site, position and special equipment prior to beginning procedure. General Anesthesia was induced. The abdomen was prepped and draped in usual sterile fashion. An incision was made in the natural skin line above the umbilicus. The fascia was elevated and incised. The peritoneum was elevated and incised. Entry into the peritoneum was confirmed visually and no bowel was noted in the vicinity of the incision. Sarmiento trocar was placed. The abdomen was insufflated with carbon dioxide to a pressure of 12-15 mmHg. Patient tolerated insufflation well. The laparoscope was then inserted and abdomen inspected. No injuries from initial trocar placement were noted. Additional trochars were then inserted in the following locations 8 mm trocar left upper quadrant and 2 more 8 mm trochars in right lower quadrant and left lower quadrant. The abdomen was inspected no abnormalities were found. The table is placed in reverse Trendelenburg position with the right side up. Robot was docked. The adhesions between the gallbladder and omentum were taken down carefully. The dome of the gallbladder was grasped with atraumatic grasper passed through the lateral port and retracted over the dome of the liver. Infundibulum was then grasped with atraumatic grasper through the midclavicular port and retracted to the right lower quadrant. This maneuver exposed Calot's triangle. The peritoneum overlying the gallbladder infundibulum was then incised and cystic duct and artery identified and circumferentially dissected. ICG was used to visualize the cystic duct. Angiocath was used to insert the cholangiogram catheter. Scissors used to make enterotomy in the cystic duct after putting a clip near the gallbladder. Catheter was placed in the cystic duct and the catheter flushed well. Cholangiogram showed choledocholithiasis in the CBD, good filling of right and left bile ducts, contrast emptying into duodenum. The cystic duct and artery were then doubly clipped and divided close to the gallbladder. The gallbladder then dissected from its peritoneal attachments by electrocautery. Large 4 cm stone did erode through the gallbladder wall with manipulation. Stone was placed in the endoscopic retrieval bag. Hemostasis was checked and the gallbladder was removed using the endoscopic retrieval bag through the umbilical port after enlarging it due to the size of the stone. The gallbladder is passed off table as specimen. The gallbladder fossa was irrigated with saline and hemostasis obtained. There is no evidence of bleeding from the gallbladder fossa or cystic artery leakage of bile from the cystic duct stump. Secondary trochars removed under direct vision. No bleeding was noted the trocar sites. The laparoscope was withdrawn and umbilical trocar removed. The abdomen was allowed to collapse. The fascia of the supraumbilical trocar was closed with 3 [id number] 0 Vicryl suture. The skin was closed with sutures of 4-0 Monocryl and Steri-Strips. The patient was extubated. The patient tolerated procedure well and was taken to the postanesthesia care unit in stable condition. Surgical Findings: Choledocholithiasis on cholangiograms Complications Complications: No
--- NOTE | 2025-06-25 17:25 | EX.PCM.DISCH ---
Discharge Instructions Diet Discharge Diet: Light diet - advance as tolerated Activity Discharge Activity: May Not Drive (while taking narcotic pain medications.) May shower in (days): 1 Lifting Restrictions: no lifting >20 lbs x 2 wks, no strenuous exercise for 4 wks Dressing / Incision Call your doctor if your incision/area has: Continuous Slow Oozing, Sudden Increased Bleeding, Increased Pain/ Swelling, Increased Redness, Foul Smelling Discharge and Swelling at the incision site Call your doctor if you observe: Fever of 101 or Higher Remove Dressing in: 2 days Cleanse incision/area with: Soap & Water Additional Dressing/Incision Instructions:: Steri-Strips will fall off in 7 to 10 days, if they do not fall off okay to remove after 10 days. Follow Up Care Please Follow Up With: Sachi Weeks MD When: Call the office for a follow-up appointment 2 weeks; after 5 PM and on the weekends call [phone] with any concerns. Test Results: Test results from this visit will be discussed in further detail at your follow-up appointment, if applicable. Discharge Plan Admission Admit Date/Time: 06/22/25 17:46 Attending Provider: Nathanael Killian Primary Care Provider: Care Physician,No Primary Consulting Providers: Sachi Weeks; Prosper Berrios; Russ Carter Discharge Orders/Prescriptions Prescriptions: New oxycodone 5 mg capsule 5 mg PO Q6H PRN (Reason: pain) 3 Days Qty: 10 0RF Referrals / Follow Up: Care Physician,No Primary [Primary Care Provider] -
--- NOTE | 2025-06-25 18:29 | POSTOPAN2_ITS ---
Anesthesia Postop Eval I Sum Postop Eval Completion status Anesthesia document: Postop Eval 1 completed: Yes Anesthesia Postop Eval I Summary Anesthesia Postop Eval I Summary: Anesthesia Postop Eval I: Assessment Summary Airway patent Yes 06/25/25 17:08 DIRECTOR [email or web address] Spontaneous unlabored Yes 06/25/25 17:08 DIRECTOR [email or web address] respirations Mental status nausea No 06/25/25 17:08 DIRECTOR [email or web address] Vomiting No 06/25/25 17:08 DIRECTOR [email or web address] Anesthesia Postop Eval I: Fluid Summary Crystalloid volume administer 1,200 06/25/25 17:08 DIRECTOR [email or web address] (ml) Colloids volume administered ( ml) Blood Product volume administered (ml) Total IV fluid infused 1,200 06/25/25 17:08 DIRECTOR [email or web address] Anesthesia Postop Eval I: Summary Notes Anesthesia Complication No 06/25/25 17:08 DIRECTOR [email or web address] Anesthesia Complication Comment: Post-operative progress note Anesthesia: Postop Eval II Evaluation Mental status: Awake and Calm Pain Level: 1 nausea: No Vomiting: No Complications Anesthesia Complication: No
--- NOTE | 2025-06-25 18:29 | PCM.POSTANE2 ---
Anesthesia Postop Eval I Sum Postop Eval Completion status Anesthesia document: Postop Eval 1 completed: Yes Anesthesia Postop Eval I Summary Anesthesia Postop Eval I Summary: Anesthesia Postop Eval I: Assessment Summary Airway patent Yes 06/25/25 17:08 TEACHING [email or web address] Spontaneous unlabored Yes 06/25/25 17:08 TEACHING [email or web address] respirations Mental status nausea No 06/25/25 17:08 TEACHING [email or web address] Vomiting No 06/25/25 17:08 TEACHING [email or web address] Anesthesia Postop Eval I: Fluid Summary Crystalloid volume administer 1,200 06/25/25 17:08 TEACHING [email or web address] (ml) Colloids volume administered ( ml) Blood Product volume administered (ml) Total IV fluid infused 1,200 06/25/25 17:08 TEACHING [email or web address] Anesthesia Postop Eval I: Summary Notes Anesthesia Complication No 06/25/25 17:08 TEACHING [email or web address] Anesthesia Complication Comment: Post-operative progress note Anesthesia: Postop Eval II Evaluation Mental status: Awake and Calm Pain Level: 1 nausea: No Vomiting: No Complications Anesthesia Complication: No
[2025-06-26] VITALS (16 sets, daily range): BP systolic 110–154; BP diastolic 52–83; PULSE 66–93; RESP 16–18; TEMP 36.6–37.2; O2SAT 92–97
[2025-06-26] MEDS: 0.9% Saline Lock 10 ML Syringe IV ×3 (04:12→19:16)
[2025-06-26 04:32] LABS: Hematocrit 40.3 % (40-54); Hemoglobin 13.2 g/dL (13.0-16.5); Immature Granulocytes Count 0.030 X10^3/uL (0.0-0.0); Mean Corp Hgb Conc 32.8 g/dL (32-36); Mean Corpuscular Volume 90.4 fL (80-94); Mean Platelet Vol. 10.9 fl (6.2-12.0); NRBC Flagged by Analyzer 0 % (0-5); Platelet Count 308 K/mm3 (150-450); RBC Distribution Width CV 13.7 % (11.6-14.6); RBC Distribution Width SD 45.7 fl (35.1-43.9); Red Blood Count 4.46 M/mm3 (4.6-6.2); White Blood Count 10.7 K/mm3 (4.4-11.0)
[2025-06-26 05:36] LABS: AST(SGOT) 30 U/L (<=37); Alanine Aminotransfer ALT/SGPT 117 U/L (<=46); Albumin, Serum 3.6 g/dL (3.5-5.0); Alkaline Phosphatase 71 U/L (40-129); Anion Gap 12 (5-15); BUN 10 mg/dL (4-19); BUN/Creat Ratio 11.6 RATIO (10-20); Bilirubin, Direct 0.34 mg/dL (0.00-0.30); Calcium,Total 9.0 mg/dL (7.6-11.0); Carbon Dioxide 21.8 mmol/L (21.0-32.0); Chloride 104 mmol/L (98-108); Estimated Creatinine Clearance 144.70 ml/min (50-250); Globulin 3.0 g/dL (2.2-4.2); Glucose 127 mg/dL (70-99); Potassium 4.1 mmol/L (3.3-5.1)
[2025-06-26] MEDS: Piperacil/Tazobactam 3.375 GM in 0.9% Normal Saline (50mL MB+) 50 ML IV ×3 (06:08→22:08)
--- NOTE | 2025-06-26 06:44 | PCM.PN.SRG ---
Subjective Subjective Patient evaluated resting comfortably in bed. He notes abdominal pain is improved since admission. He notes minimal amount of incisional discomfort. He denies any nausea, vomiting. Objective Data Objective Data Vital Signs: Vital Signs Temp Pulse Resp BP Pulse Ox O2 Del Method O2 Flow Rate 97.8 F 76 18 125/75 H 96 Room Air 1.5 06/26/25 06:00 06/26/25 06:00 06/26/25 06:00 06/26/25 06:00 06/26/25 06:00 06/26/25 06:00 06/25/25 22:23 Oxygen Flow Rate (L/min) 1.5 Oxygen Delivery Method Room Air Weight: 279 lb 1.683 oz Body Mass Index (BMI) 36.8 Intake & Output: Intake and Output for Last 24 Hours 06/24/25 06/25/25 06/26/25 23:59 23:59 23:59 Intake Total 4261.67 / 4261.67 1268.59 / 1418.59 765 / 765 Output Total 705 700 / 700 Balance 4261.67 / 4261.67 1263.59 / 713.59 65 / 65 Lab / Micro Data 06/26/25 04:20 06/26/25 04:20 Labs: Laboratory Results - last 24 hr 06/26/25 04:20: WBC 10.7, RBC 4.46 L, Hgb 13.2, Hct 40.3, MCV 90.4, MCH 29.6, MCHC 32.8, RDW Std Deviation 45.7 H, RDW Coeff of Teresa 13.7, Plt Count 308, MPV 10.9, Immature Gran % (Auto) 0.300, Neut % (Auto) 83.2 H, Lymph % (Auto) 9.8 L, [place] % (Auto) 6.5, Eos % (Auto) 0.0, Baso % (Auto) 0.2, Absolute Neuts (auto) 8.9 H, Absolute Lymphs (auto) 1.05, Nucleated RBC % 0, Sodium 137, Potassium 4.1, Chloride 104, Carbon Dioxide 21.8, Anion Gap 12, BUN 10, Creatinine 0.88, Estim Creat Clear Calc 144.70, Est GFR (MDRD) Non-Af 107, BUN/Creatinine Ratio 11.6, Glucose 127 H, Calcium 9.0, Total Bilirubin 0.61, Direct Bilirubin 0.34 H, AST 30, ALT 117 H, Alkaline Phosphatase 71, Total Protein 6.6, Albumin 3.6, Globulin 3.0 Radiography Diagnostic Testing: Radiology Impression Cholangiogram 06/25/25 15:15 IMPRESSION: As above. Reading Location: [facility] Rhythm Strip Rhythm Strip: Sinus Rhythm Rate: 76 Ectopy: None Physical Exam GI GI Narrative: Abdomen- soft, slight tenderness near incisions. Incisions c/d/i. No erythema or infection noted. Assessment & Plan Assessment/Plan (1) S/P laparoscopic cholecystectomy: PLAN: I am following this patient in conjunction with Dr. Roberson in Dr. Weeks's absence Labs reviewed Choledocholithiasis was found on cholangiogram during cholecystectomy procedure. Dr. Singh will plan to proceed with an ERCP today likely around noon Patient will likely be held for observation following ERCP procedure Plan for discharge tomorrow We will continue to monitor this patient Charges/Coding Visit Charges Inpatient E&M: 67610 Subs Hosp L1 (post-op; no charge)
[2025-06-26] MEDS: 0.9% Normal Saline (1000mL) 1,000 ML 100 ML IV (08:48)
--- NOTE | 2025-06-26 15:23 | PRE.ANES_ITS ---
ASA Classification* ASA Classification ASA Classification: 1 and E Assessment & Plan Anesthesia* Anesthesia Assessment Anesthesia Assessment: Discussed sedation and/or anesthesia options, risks, benefits, and alternatives with patient/parents/legal guardian/POA. Questions invited. The patient/parents/legal guardian/POA seems to understand and agrees to proceed with anesthesia plan. Reviewed the physical assessment, medical history, allergy history and patient home medications list prior to surgery/procedure/anesthetic and documented any changes. Performed airway and anesthesia risk assessments. Anesthesia Type Anesthesia Type: General History Source History Obtained from:: Patient and Chart Anesthesia Focused Assessment* Temperature: 97.9 F Pulse Rate: 66 Blood Pressure: 130/76 Respiratory Rate: 16 Pulse Ox: 94 Oxygen Delivery Method: Room Air Oxygen Flow Rate (L/min): 1.5 Airway Assessment Mouth opens: >3 cm Mallampati Score: III Teeth Condition: Intact Neck Range of motion (ROM): Full ROM Labs Anesthesia Preop lab: CBC WBC 10.7 K/mm3 (4.4-11.0) 06/26/25 04:20 06/26/25 RBC 4.46 M/mm3 (4.6-6.2) L 06/26/25 04:20 06/26/25 Hgb 13.2 g/dL (13.0-16.5) 06/26/25 04:20 06/26/25 Hct 40.3 % (40-54) 06/26/25 04:20 06/26/25 Plt Count 308 K/mm3 (150-450) 06/26/25 04:20 06/26/25 CHEMISTRY Potassium 4.1 mmol/L (3.3-5.1) 06/26/25 04:20 06/26/25 Sodium 137 mmol/L (133-145) 06/26/25 04:20 06/26/25 BUN 10 mg/dL (4-19) 06/26/25 04:20 06/26/25 Creatinine 0.88 mg/dL (0.70-1.20) 06/26/25 04:20 06/26/25 Glucose 127 mg/dL (70-99) H 06/26/25 04:20 06/26/25 COAG Pre-Assessment Diagnosis/Proposed Procedure Planned Operative Procedure(s): Robotic laparoscopic cholecystectomy with cholangiograms Anesthesia History Anesthesia History - multimedia instructional designer: Anesthesia History - multimedia instructional designer Hx Hospitalization No 12/13/18 21:50 Any Problems With Anesthesia No 06/24/25 20:30 Cholinesterase deficiency No 06/24/25 20:30 You/Your Family Experience No 06/24/25 20:30 fever (hyperthermia) with Relationship Recent Exposure to Contagious No 06/24/25 20:30 Disease Does patient have nerve No 06/24/25 20:30 stimulator Patient instructed to have No 06/24/25 20:30 device shut off --Does patient have Pacemaker No 06/26/25 15:08 or ICD? When Was Last Pacemaker Check QUESTION #4 FULL TEXT: You/Your Family Experience fever (hyperthermia) with Anesthesia Last Oral Intake Last Oral intake: Last Oral Intake NPO since 20:00 06/26/25 15:08 Meds taken in AM with sips of Yes 06/25/25 14:23 water? Meds patient instructed to Acetaminophen 06/25/25 14:23 take am of surgery PONV PONV - multimedia instructional designer: PONV - multimedia instructional designer Female HX of Motion Sickness HX of N/V After Surgery Non-Smoker Duration of Surgery greater than 60 minutes Number of Risk Factors PONV Score Height & Weight Height & Weight: Anesthesia: Height & Weight Height 6 ft 1 in 06/26/25 15:08 Weight: 126.6 kg 06/26/25 12:44 Body Mass Index (BMI) 36.8 06/25/25 11:59 Respiratory Assessment Respiratory Assessment - multimedia instructional designer: Respiratory Tract Infection Hx - multimedia instructional designer Hx Respiratory Tract Infection No 06/24/25 20:30 STOP Sleep Apnea STOP Sleep Apnea - multimedia instructional designer: STOP Sleep Apnea - multimedia instructional designer Hx Hypertension No 06/22/25 19:24 Hx Sleep Apnea No 06/22/25 19:24 CPAP BIPAP Do you snore loudly (louder Yes 06/22/25 19:24 than talking or can be heard Do you often feel tired/ Yes 06/22/25 19:24 fatigued/ sleepy during daytime? Has anyone observed you stop No 06/22/25 19:24 breathing during sleep? STOP Results Positive 06/22/25 19:24 QUESTION #5 FULL TEXT : Do you snore loudly (louder than talking or can be heard through closed doors)? Tobacco Use History Tobacco Use History - multimedia instructional designer: Tobacco Use History - multimedia instructional designer Tobacco Use Smoking Status Never smoker 06/22/25 19:24 Hx Tobacco Use No 06/22/25 19:24 Years Smoking Packs Smoked per Day Smoking Cessation Date was within the last 15 years Hx Smoking Cessation Date Hx Smoking Cessation Counseling Hematologic Medial History Hematologic Hx - multimedia instructional designer: Hematologic Medical Hx - clinical rn Hx of Blood Transfusion No 06/22/25 19:24 Hx of Transfusion in last 3 No 06/22/25 19:24 Months Date of Last Transfusion (if within last 3 months) Ever experience any problems No 06/22/25 19:24 with transfusion(s)? Specify any problems Hx of Preganancy in last 3 N/A 06/22/25 19:24 Months Nurse Filling Out Transfusion [facility] 06/22/25 19:24 & Questions: Date: 06/22/25 06/22/25 19:24 Time: :06/22/25 19:24 Patient unable to answer at this time (ie. confused, unrespo /Reproduction History /Reproductive History - multimedia instructional designer: /Reproductive Hx- multimedia instructional designer Hx Now Gestational Age (in weeks): EDC: Hx Hx Para Hx Section SAB Active Medications Active Medications: Current Medications Generic Name Dose Route Start Last Admin Trade Name Freq PRN Reason Stop Dose Admin Acetaminophen 1,000 mg 06/22/25 22:00 06/26/25 14:09 Acetaminophen 500 Mg Tablet PO Not Given Q8 TOI Sodium Chloride 250 mls @ 15 mls/hr 06/22/25 19:41 IV .[id number] PRN Saline Flush Sodium Chloride 250 mls @ 15 mls/hr 06/22/25 19:41 IV .[id number] PRN Additional IVPB Infusion Sodium Chloride 1,000 mls @ 100 mls/hr 06/23/25 13:20 06/26/25 08:48 IV 100 mls/hr .Q10H TOI Administration Piperacillin Sod/Tazobactam 50 mls @ 12.5 mls/hr 06/25/25 22:00 06/26/25 14:08 Sod 3.375 gm/ Sodium Chloride IV 12.5 mls/hr Q8 TOI Administration Ketorolac Tromethamine 15 mg 06/22/25 19:21 06/26/25 04:10 Ketorolac 15 Mg/Ml Vial IV 06/27/25 19:21 15 mg Q6H PRN PRN Administration Pain Score 1-10 Morphine Sulfate 2 - 4 mg 06/22/25 19:21 06/26/25 12:45 Morphine 2 Mg/Ml Syringe IV 2 mg Q3H PRN PRN Administration Pain Score 6-10 Morphine Sulfate 2 - 4 mg 06/22/25 19:26 06/23/25 23:10 Morphine 4 Mg/Ml Syringe IV 4 mg Q3H PRN PRN Administration Pain Score 6-10 Ondansetron HCl 4 mg 06/22/25 19:21 06/23/25 05:38 Ondansetron 4 Mg/2 Ml Vial IV 4 mg Q8H PRN PRN Administration NAUSEA/VOMITING Oxycodone HCl 10 mg 06/23/25 13:20 Oxycodone 5 Mg Tablet PO Q4H PRN PRN Pain Score 4-10 Sodium Chloride 10 - 40 ml 06/22/25 19:41 06/26/25 12:46 0.9% Saline Lock 10 Ml Syringe IV 10 ml UD PRN Administration SALINE FLUSH PFSH Medical History no medical history Home Medications ?Medication ?Instructions ?Recorded ?Last Taken ?Type oxycodone 5 mg capsule 5 mg PO Q6H PRN pain 3 days #10 06/25/25 Unknown Rx caps Allergy/AdvReac Type Severity Reaction Status Date / Time No Known Allergies Allergy Verified 06/22/25 13:56 Family History Grandfather Heart disease Abdominal aortic aneurysm Surgical History S/P laparoscopic cholecystectomy S/P tonsillectomy H/O hemorrhoidectomy Surgical History no surgical history Social History Smoking Status: Never smoker alcohol intake: never substance use type: does not use Review of Systems (Anesthesia) ROS Narrative System reviewed and no additional complaints, except as documented.
--- NOTE | 2025-06-26 15:47 | PN_ITS ---
Progress Note Patient has been n.p.o. for ERCP today. He is not having abdominal pain. All questions concerns answered regarding ERCP were explained to the patient and patient's . Physical Exam GI GI Narrative: Abdomen- soft, slight tenderness near incisions. Incisions c/d/i. No erythema or infection noted. Assessment & Plan Assessment/Plan (1) Acute gallstone pancreatitis: (2) Abdominal pain: PLAN: 49-year-old male with acute pancreatitis, likely secondary to gallstone obstruction of the pancreaticobiliary ductal system, given the presenting symptoms of abdominal pain, jaundice, and elevated pancreatic and liver enzymes. The presence of jaundice and elevated direct bilirubin, alkaline phosphatase, and transaminases suggests potential choledocholithiasis . * Differential diagnosis includes other causes of pancreatitis, such as hypertriglyceridemia, medication-induced, or idiopathic. However, the constellation of symptoms strongly points towards gallstone pancreatitis * Assessment of severity: Based on presenting symptoms and laboratory findings, patient requires close monitoring for progression to severe pancreatitis, which carries a risk of complications like pancreatic necrosis, infection, organ failure, or pseudocyst formation. Plan: * Close monitoring, pain control, hydration, and further diagnostic workup. * Fluid Resuscitation:?Initiate intravenous (IV) fluid resuscitation with Ringer's lactate. * Pain Management:?Administer IV pain medication (e.g., hydromorphone or fentanyl) as needed for severe abdominal pain. * Nausea/Vomiting:?Administer antiemetics (e.g., ondansetron) as needed. * Further Diagnostic Workup: * If his LFTs continue to go up he may need ERCP. * Consider Early Oral Feeding:?If nausea and vomiting resolve, initiate clear liquids and advance diet as tolerated. * Consider Alcohol Cessation Counseling:?Given the history of heavy alcohol use, counseling and resources for alcohol cessation are recommended once acute pancreatitis resolves. * Cholecystectomy:?If gallstones are confirmed, laparoscopic cholecystectomy should be considered during the initial hospitalization after the acute pancreatitis has resolved * Monitor for Complications:?Closely monitor for signs of worsening pancreatitis, including increasing pain, fever, hemodynamic instability, or worsening jaundice. Monitor for development of complications such as pancreatic necrosis, pseudocysts, or infection. PLAN: Plan 06/26/2025-patient will undergo ERCP. He was explained alternatives, risk and benefits include not withstanding bleeding, infection, sepsis, perforation, need for emergent urgent . He will have an ASA of 3. Visit Charges Inpatient E&M: 42648 Subs Hosp L3
[2025-06-26] MEDS: 0.9% Normal Saline (1000mL) 800 ML IV (15:52)
[2025-06-26] MEDS: Lidocaine 1% (5 ml sdv) 5 ML Vial 10 ML IV (15:57)
--- NOTE | 2025-06-26 16:10 | RAD_ITS ---
PROCEDURE: ERCP BILIARY/PANCREAS; O.R. FLUORO FOR C-ARM 06/26/2025 REASON FOR EXAM: ERCP TECHNIQUE: ERCP BILIARY/PANCREAS; O.R. FLUORO FOR C-ARM RAD/O.R. Fluoro for C-Arm IMPRESSION: Intraoperative fluoroscopy performed for ERCP. 15 fluoroscopic images were als o obtained. Reading Location: [id number]
--- NOTE | 2025-06-26 16:10 | RAD_ITS ---
PROCEDURE: ERCP BILIARY/PANCREAS; O.R. FLUORO FOR C-ARM 06/26/2025 REASON FOR EXAM: ERCP TECHNIQUE: ERCP BILIARY/PANCREAS; O.R. FLUORO FOR C-ARM RAD/ERCP Biliary/Pancreas IMPRESSION: Intraoperative fluoroscopy performed for ERCP. 15 fluoroscopic images were als o obtained. Reading Location: [id number]
[2025-06-26] MEDS: fentaNYL 100 MCG/2 ML Ampul IV (16:17)
--- NOTE | 2025-06-26 16:37 | PCM.PN.HOSP ---
Reason for Visit Chief Complaint: Abdominal pain Objective Data Objective Data Vital Signs: Vital Signs Temp Pulse Resp BP Pulse Ox O2 Del Method O2 Flow Rate 97.9 F 66 16 130/76 H 94 Room Air 1.5 06/26/25 15:26 06/26/25 15:26 06/26/25 15:26 06/26/25 15:26 06/26/25 15:26 06/26/25 15:26 06/26/25 15:26 Oxygen Flow Rate (L/min) 1.5 Oxygen Delivery Method Room Air Weight: 279 lb 1.683 oz Body Mass Index (BMI) 36.8 Intake & Output: Intake and Output for Last 24 Hours 06/24/25 06/25/25 06/26/25 23:59 23:59 23:59 Intake Total 4261.67 / 4261.67 1268.59 / 1418.59 1815.0 / 1815.0 Output Total 5 700 / 700 Balance 4261.67 / 4261.67 1263.59 / 713.59 1115.0 / 1115.0 Lab / Micro Data 06/26/25 04:20 06/26/25 04:20 Labs: Laboratory Results - last 24 hr 06/26/25 04:20: WBC 10.7, RBC 4.46 L, Hgb 13.2, Hct 40.3, MCV 90.4, MCH 29.6, MCHC 32.8, RDW Std Deviation 45.7 H, RDW Coeff of Teresa 13.7, Plt Count 308, MPV 10.9, Immature Gran % (Auto) 0.300, Neut % (Auto) 83.2 H, Lymph % (Auto) 9.8 L, [place] % (Auto) 6.5, Eos % (Auto) 0.0, Baso % (Auto) 0.2, Absolute Neuts (auto) 8.9 H, Absolute Lymphs (auto) 1.05, Nucleated RBC % 0, Sodium 137, Potassium 4.1, Chloride 104, Carbon Dioxide 21.8, Anion Gap 12, BUN 10, Creatinine 0.88, Estim Creat Clear Calc 144.70, Est GFR (MDRD) Non-Af 107, BUN/Creatinine Ratio 11.6, Glucose 127 H, Calcium 9.0, Total Bilirubin 0.61, Direct Bilirubin 0.34 H, AST 30, ALT 117 H, Alkaline Phosphatase 71, Total Protein 6.6, Albumin 3.6, Globulin 3.0 Radiography Diagnostic Testing: Radiology Impression Cholangiogram 06/25/25 15:15 IMPRESSION: As above. Reading Location: [id number] Rhythm Strip Rhythm Strip: Sinus Rhythm Rate: 76 Ectopy: None Physical Exam Narrative Seen and examined Patient denies any abdominal pain. No nausea or vomiting or abdominal distention. Patient had lap marita yesterday. Found to have choledocholithiasis on intraoperative cholangiogram. Plan for ERCP today. Physical exam General: Alert, Oriented x3, Cooperative HEENT: Atraumatic, PERRLA, EOMI, Normocephalic. Oral: No Gingival or Mucosal Lesions/ Ulcerations Neck: Supple, No JVD, Negative Carotid Bruits Chest wall/Lungs: Air entry diminished in bilateral lung bases. No crepitation/rhonchi Cardiovascular: Regular rate and rhythm, Normal S1,S2, No M/G/R Abdomen: Bowel Sounds Present, Soft, no acute tenderness over right upper quadrant/epigastrium. Nondistended : No dysuria. No renal angle tenderness. No suprapubic tenderness. Extremities: No edema, Capillary Refill Less than 3 Seconds Skin: No rashes, No breakdown Musculoskeletal: No Tenderness to Palpation of Joints or Extremities Neurological: Cranial nerves II-XII grossly intact, DTR 2+/4. No acute focal neurological deficit. Psych/Mental Status: Normal Affect, Appropriate. Assessment & Plan Assessment/Plan (1) Acute gallstone pancreatitis: PLAN: Plan This 49-year-old gentleman is being admitted for right upper quadrant discomfort with numbness in the left arm. Hospital cardiac workup was negative. Gallstone pancreatitis 1. Gallstone pancreatitis from suspected passed gallstone: Right upper quadrant pain/tenderness has resolved. Ultrasound showed multiple gallstones, normal wall. CT scan also showed multiple gallstones but no obvious inflammation of the gallbladder. There was inflammation around the head of the pancreas therefore pancreatitis and gallstone pancreatitis. Liver chemistry shows improvement in total bilirubin, ALT and AST. Lipase was more than 3000. -continue supportive treatment including fluids and pain meds if needed 06/26: The patient had lap marita yesterday. Cystic artery and duct was tied at GB end. Found to have choledocholithiasis on intraoperative cholangiogram. Plan for ERCP today. Liver chemistry shows ALT, AST 30. Total bilirubin 0.61/direct 0.34. Total bilirubin normal. ALT improving. #2 cholelithiasis-was evaluated by surgeon Dr. Sachi Weeks. Plan for laparoscopic/robotic cholecystectomy Laboratory Results 06/26/25 04:20: WBC 10.7, RBC 4.46 L, Hgb 13.2, Hct 40.3, MCV 90.4, MCH 29.6, MCHC 32.8, RDW Std Deviation 45.7 H, RDW Coeff of Teresa 13.7, Plt Count 308, MPV 10.9, Immature Gran % (Auto) 0.300, Neut % (Auto) 83.2 H, Lymph % (Auto) 9.8 L, [place] % (Auto) 6.5, Eos % (Auto) 0.0, Baso % (Auto) 0.2, Absolute Neuts (auto) 8.9 H, Absolute Lymphs (auto) 1.05, Nucleated RBC % 0, Sodium 137, Potassium 4.1, Chloride 104, Carbon Dioxide 21.8, Anion Gap 12, BUN 10, Creatinine 0.88, Estim Creat Clear Calc 144.70, Est GFR (MDRD) Non-Af 107, BUN/Creatinine Ratio 11.6, Glucose 127 H, Calcium 9.0, Total Bilirubin 0.61, Direct Bilirubin 0.34 H, AST 30, ALT 117 H, Alkaline Phosphatase 71, Total Protein 6.6, Albumin 3.6, Globulin 3.0 Charges/Coding Visit Charges Inpatient E&M: 67803 Subs Hosp L2
--- NOTE | 2025-06-26 16:49 | OP.PROVAT_ITS ---
06/26/2025 No Primary Care Physician Re : ERCP procedure for Shaq Pinzon Dear Care Physician This procedure was performed on Thursday, June 26, 2025. My impressions and recommendations are as follows: Impressions : - Choledocholithiasis was found. Complete removal was accomplished by biliary sphincterotomy and balloon extraction. - One temporary stent was placed into the ventral pancreatic duct. - A biliary sphincterotomy was performed. - The biliary tree was swept. Recommendations : My findings are described in the full procedure note, which is enclosed. If I can be of further assistance, please feel free to contact me at . Sincerely, Parker Singh, 06/26/2025 4:48:19 PM This report has been signed electronically.
--- NOTE | 2025-06-26 16:49 | OP.ERCP_ITS ---
Patient Name: Shaq Pinzon Procedure Date: 06/26/2025 3:43 PM Date of : 1975 Age: 49 Procedure: ERCP Indications: Bile duct stone(s) Providers: Parker Singh DO Medicines: General Anesthesia Patient Profile: This is a 49 year old male. Refer to note in patient chart for documentation of history and physical. Patient has symptoms of acute right upper quadrant abdominal pain and acute jaundice. This patient has no history of previous ERCP. He is status post laparoscopic cholecystectomy recently. Complications: No immediate complications. Procedure: Pre-Anesthesia Assessment: - Prior to the procedure, a History and Physical was performed, and patient medications and allergies were reviewed. The patient is competent. The risks and benefits of the procedure and the sedation options and risks were discussed with the patient. All questions were answered and informed consent was obtained. Patient identification and proposed procedure were verified by the physician in the pre-procedure area. Mental Status Examination: alert and oriented. Airway Examination: normal oropharyngeal airway and neck mobility. Respiratory Examination: clear to auscultation. CV Examination: normal. Prophylactic Antibiotics: The patient does not require prophylactic antibiotics. Prior Anticoagulants: The patient has taken no anticoagulant or antiplatelet agents except for NSAID medication. ASA Grade Assessment: II - A patient with mild systemic disease. After reviewing the risks and benefits, the patient was deemed in satisfactory condition to undergo the procedure. The anesthesia plan was to use monitored anesthesia care (MAC). Immediately prior to administration of medications, the patient was re-assessed for adequacy to receive sedatives. The heart rate, respiratory rate, oxygen saturations, blood pressure, adequacy of pulmonary ventilation, and response to care were monitored throughout the procedure. The physical status of the patient was re-assessed after the procedure. After obtaining informed consent, the scope was passed under direct vision. Throughout the procedure, the patient's blood pressure, pulse, and oxygen saturations were monitored continuously. The Duodenoscope was introduced through the mouth, and advanced to the duodenum and used to inject contrast into the bile duct and ventral pancreatic duct. The ERCP was accomplished without difficulty. The patient tolerated the procedure well. Scope In: 4:10:54 PM Scope Out: 4:40:12 PM Total Procedure Duration Time 0 hours 29 minutes 18 seconds Findings: The coupon collection clerk film was normal. The esophagus was successfully intubated under direct vision. The scope was advanced to a normal major papilla in the descending duodenum without detailed examination of the pharynx, larynx and associated structures, and upper GI tract. The upper GI tract was grossly normal. The ventral pancreatic duct was deeply cannulated with the short-nosed traction sphincterotome. Contrast was injected. I personally interpreted the pancreatic duct images. There was brisk flow of contrast through the ducts. Image quality was adequate. Contrast extended to the pancreatic duct. Opacification of the entire pancreatic ductal system was successful. The maximum diameter of the ducts was 3 mm. The entire opacified area was normal. A long 0.025 inch Jagwire was passed into the ventral pancreatic duct. One 4 Fr by 5 cm temporary stent with a single internal pigtail was placed into the ventral pancreatic duct. Clear fluid flowed through the stent. The stent was in good position. A long 0.025 inch Jagwire was passed into the biliary tree. The short-nosed traction sphincterotome was passed over the guidewire and the bile duct was then deeply cannulated. Contrast was injected. Opacification of the entire opacified area and entire biliary tree was successful. The maximum diameter of the ducts was 8 mm. The upper third of the main bile duct contained two stones, the largest of which was 3 mm in diameter. A 5 mm biliary sphincterotomy was made with a braided traction (standard) sphincterotome using ERBE electrocautery. There was no post-sphincterotomy bleeding. The biliary tree was swept with a 12 mm balloon starting at the left intrahepatic duct(s) and right intrahepatic duct(s). Sludge was swept from the duct. All stones were removed. Impression: - Choledocholithiasis was found. Complete removal was accomplished by biliary sphincterotomy and balloon extraction. - One temporary stent was placed into the ventral pancreatic duct. - A biliary sphincterotomy was performed. - The biliary tree was swept. Procedure Code(s): --- Professional --- 61329, Endoscopic retrograde cholangiopancreatography (ERCP); with placement of endoscopic stent into biliary or pancreatic duct, including pre- and post-dilation and guide wire passage, when performed, including sphincterotomy, when performed, each stent 73569, Endoscopic retrograde cholangiopancreatography (ERCP); with removal of calculi/debris from biliary/pancreatic duct(s) 99690, 59, Endoscopic retrograde cholangiopancreatography (ERCP); with sphincterotomy/papillotomy 11666, 26, Endoscopic catheterization of the pancreatic ductal system, radiological supervision and interpretation CPT copyright 2021 [employer]. All rights reserved. The codes documented in this report are preliminary and upon outpatient coder review may be revised to meet current compliance requirements. Parker Singh DO 06/26/2025 4:48:19 PM This report has been signed electronically. Number of Addenda: 0 Note Initiated On: 06/26/2025 3:43 PM
--- NOTE | 2025-06-26 16:54 | PCM.POST.ANE ---
Anesthesia: Postop Eval I Current Vital Signs Temperature: 98.9 F Pulse Rate: 93 Blood Pressure: 131/63 Respiratory Rate: 18 Pulse Ox: 95 Assessment Airway patent: Yes Spontaneous unlabored respirations: Yes nausea: No Vomiting: No Anesthesia Complication: No Fluid Hydration Crystalloid volume administer (ml): 800 Total IV fluid infused: 800 Progress Note Anesthesia document: Postop Eval 1 completed: Yes
[2025-06-26] MEDS: Lactated Ringers 1,000 ML 999 ML IV (17:07)
--- NOTE | 2025-06-26 19:16 | ANES.CONFIRM ---
Anesthesia: Confirm Documents Multiple Procedures on Account (2) Confirmed Documents: Yes
--- NOTE | 2025-06-26 19:17 | POSTOPAN2_ITS ---
Anesthesia Postop Eval I Sum Postop Eval Completion status Anesthesia document: Postop Eval 1 completed: Yes Anesthesia Postop Eval I Summary Anesthesia Postop Eval I Summary: Anesthesia Postop Eval I: Assessment Summary Airway patent Yes 06/26/25 16:54 [email or web address][email or web address] Spontaneous unlabored Yes 06/26/25 16:54 [facility]TNES respirations Mental status Awake,Calm 06/25/25 18:29 nausea No 06/26/25 16:54 [facility]TNES Vomiting No 06/26/25 16:54 [email or web address] Anesthesia Postop Eval I: Fluid Summary Crystalloid volume administer 800 06/26/25 16:54 [email or web address]TNES (ml) Colloids volume administered ( ml) Blood Product volume administered (ml) Total IV fluid infused 800 06/26/25 16:54 [email or web address] Anesthesia Postop Eval I: Summary Notes Anesthesia Complication No 06/26/25 16:54 [email or web address][email or web address] Anesthesia Complication Comment: Post-operative progress note Anesthesia: Postop Eval II Evaluation Mental status: Awake and Calm Pain Level: 2 nausea: No Vomiting: No Complications Anesthesia Complication: No
--- NOTE | 2025-06-26 19:17 | PCM.POSTANE2 ---
Anesthesia Postop Eval I Sum Postop Eval Completion status Anesthesia document: Postop Eval 1 completed: Yes Anesthesia Postop Eval I Summary Anesthesia Postop Eval I Summary: Anesthesia Postop Eval I: Assessment Summary Airway patent Yes 06/26/25 16:54 LEASING CONSULTANT.TNES Spontaneous unlabored Yes 06/26/25 16:54 LEASING CONSULTANT.TNES respirations Mental status Awake,Calm 06/25/25 18:29 nausea No 06/26/25 16:54 LEASING CONSULTANT.TNES Vomiting No 06/26/25 16:54 LEASING CONSULTANT.TNES Anesthesia Postop Eval I: Fluid Summary Crystalloid volume administer 800 06/26/25 16:54 LEASING CONSULTANT.TNES (ml) Colloids volume administered ( ml) Blood Product volume administered (ml) Total IV fluid infused 800 06/26/25 16:54 LEASING CONSULTANT.TNES Anesthesia Postop Eval I: Summary Notes Anesthesia Complication No 06/26/25 16:54 LEASING CONSULTANT.TNES Anesthesia Complication Comment: Post-operative progress note Anesthesia: Postop Eval II Evaluation Mental status: Awake and Calm Pain Level: 2 nausea: No Vomiting: No Complications Anesthesia Complication: No
[2025-06-27 01:53] VITALS: BP 121/60; PULSE 70; RESP 16; TEMP 36.6; O2SAT 95
[2025-06-27] MEDS: 0.9% Normal Saline (1000mL) 1,000 ML 100 ML IV (03:44)
[2025-06-27 05:55] VITALS: BP 132/67; PULSE 73; RESP 15; TEMP 36.5; O2SAT 98
[2025-06-27] MEDS: Piperacil/Tazobactam 3.375 GM in 0.9% Normal Saline (50mL MB+) 50 ML IV (05:58)
[2025-06-27 06:46] LABS: Hematocrit 38.2 % (40-54); Hemoglobin 12.5 g/dL (13.0-16.5); Immature Granulocytes Count 0.050 X10^3/uL (0.0-0.0); Mean Corp Hgb Conc 32.7 g/dL (32-36); Mean Corpuscular Volume 90.7 fL (80-94); Mean Platelet Vol. 11.6 fl (6.2-12.0); NRBC Flagged by Analyzer 0 % (0-5); Platelet Count 311 K/mm3 (150-450); RBC Distribution Width CV 14.1 % (11.6-14.6); RBC Distribution Width SD 46.5 fl (35.1-43.9); Red Blood Count 4.21 M/mm3 (4.6-6.2); White Blood Count 9.9 K/mm3 (4.4-11.0)
--- NOTE | 2025-06-27 06:53 | PN.SURG_ITS ---
Subjective Subjective Patient evaluated resting comfortably in bed. He denies any abdominal/incisional pain, only with movement. He denies any nausea, vomiting. He is tolerating a diet well. Objective Data Objective Data Vital Signs: Vital Signs Temp Pulse Resp BP Pulse Ox O2 Del Method O2 Flow Rate 97.7 F L 73 15 132/67 H 98 Room Air 3 06/27/25 05:55 06/27/25 05:55 06/27/25 05:55 06/27/25 05:55 06/27/25 05:55 06/27/25 05:55 06/26/25 18:00 Oxygen Flow Rate (L/min) 3 Oxygen Delivery Method Room Air Weight: 279 lb 1.683 oz Body Mass Index (BMI) 36.8 Intake & Output: Intake and Output for Last 24 Hours 06/25/25 06/26/25 06/27/25 23:59 23:59 23:59 Intake Total 1268.59 / 1418.59 4315.00 / 4315.00 50 / 50 Output Total 5 / 705 700 / 700 Balance 1263.59 / 713.59 3615.00 / 3615.00 50 / 50 Lab / Micro Data 06/27/25 06:27 06/27/25 06:27 Labs: Laboratory Results - last 24 hr 06/27/25 06:27: WBC 9.9, RBC 4.21 L, Hgb 12.5 L, Hct 38.2 L, MCV 90.7, MCH 29.7, MCHC 32.7, RDW Std Deviation 46.5 H, RDW Coeff of Teresa 14.1, Plt Count 311, MPV 11.6, Immature Gran % (Auto) 0.500, Neut % (Auto) 75.6 H, Lymph % (Auto) 14.9 L, [place] % (Auto) 8.6, Eos % (Auto) 0.2, Baso % (Auto) 0.2, Absolute Neuts (auto) 7.5, Absolute Lymphs (auto) 1.48, Nucleated RBC % 0 Radiography Diagnostic Testing: Radiology Impression C-Arm Fluoroscopy 06/26/25 16:10 IMPRESSION: Intraoperative fluoroscopy performed for ERCP. 15 fluoroscopic images were also obtained. Reading Location: [id number] End[facility] Retro Cholangiopancreatogram 06/26/25 16:10 IMPRESSION: Intraoperative fluoroscopy performed for ERCP. 15 fluoroscopic images were also obtained. Reading Location: [id number] Rhythm Strip Rhythm Strip: Sinus Rhythm Rate: 76 Ectopy: None Physical Exam GI GI Narrative: Abdomen- soft, incisional tenderness. Incisions c/d/i. No erythema or infection noted. Assessment & Plan Assessment/Plan (1) Choledocholithiasis: PLAN: I am following this patient in conjunction with Dr. Weeks. She will independently evaluate this patient. Labs reviewed Patient has met appropriate discharge criteria Ready for discharge Dr. Weeks completed discharge instructions He will need to follow-up in 2 weeks with our office Charges/Coding Visit Charges Inpatient E&M: 17218 Subs Hosp L1 (no charge; post-op)
[2025-06-27 07:06] LABS: AST(SGOT) 46 U/L (<=37); Alanine Aminotransfer ALT/SGPT 105 U/L (<=46); Albumin, Serum 3.5 g/dL (3.5-5.0); Alkaline Phosphatase 106 U/L (40-129); Anion Gap 10 (5-15); BUN 12 mg/dL (4-19); BUN/Creat Ratio 15.0 RATIO (10-20); Bilirubin, Direct 0.33 mg/dL (0.00-0.30); Calcium,Total 8.8 mg/dL (7.6-11.0); Carbon Dioxide 22.5 mmol/L (21.0-32.0); Chloride 106 mmol/L (98-108); Estimated Creatinine Clearance 161.18 ml/min (50-250); Globulin 2.7 g/dL (2.2-4.2); Glucose 128 mg/dL (70-99); Potassium 4.0 mmol/L (3.3-5.1)
--- NOTE | 2025-06-27 10:42 | EX.PCM.PN.GI ---
Subjective Subjective - ERCP 06/26/2025 choledocholithiasis with biliary sphincterotomy and balloon extraction with ventral pancreatic duct stent placement - denies any abdominal pain - but does endorse abdominal soreness - tolerating PO - c/o diarrhea after breakfast (pagan/eggs) - we have discussed limiting fatty foods - denies any N/V - no PCP - denies any h/o smoking or EtOH use Objective Data Objective Data Vital Signs: Vital Signs Temp Pulse Resp BP Pulse Ox O2 Del Method O2 Flow Rate 97.7 F L 73 15 132/67 H 98 Room Air 3 06/27/25 05:55 06/27/25 05:55 06/27/25 05:55 06/27/25 05:55 06/27/25 05:55 06/27/25 05:55 06/26/25 18:00 Oxygen Flow Rate (L/min) 3 Oxygen Delivery Method Room Air Weight: 279 lb 1.683 oz Body Mass Index (BMI) 36.8 Intake & Output: Intake and Output for Last 24 Hours 06/25/25 06/26/25 06/27/25 23:59 23:59 23:59 Intake Total 1268.59 / 1418.59 4315.00 / 4315.00 600 / 600 Output Total 5 / 705 700 / 700 Balance 1263.59 / 713.59 3615.00 / 3615.00 600 / 600 Lab / Micro Data Attestation: I reviewed the patient's lab results. 06/27/25 06:27 06/27/25 06:27 Labs: Laboratory Results - last 24 hr 06/27/25 06:27: WBC 9.9, RBC 4.21 L, Hgb 12.5 L, Hct 38.2 L, MCV 90.7, MCH 29.7, MCHC 32.7, RDW Std Deviation 46.5 H, RDW Coeff of Teresa 14.1, Plt Count 311, MPV 11.6, Immature Gran % (Auto) 0.500, Neut % (Auto) 75.6 H, Lymph % (Auto) 14.9 L, [place] % (Auto) 8.6, Eos % (Auto) 0.2, Baso % (Auto) 0.2, Absolute Neuts (auto) 7.5, Absolute Lymphs (auto) 1.48, Nucleated RBC % 0, Sodium 139, Potassium 4.0, Chloride 106, Carbon Dioxide 22.5, Anion Gap 10, BUN 12, Creatinine 0.79, Estim Creat Clear Calc 161.18, Est GFR (MDRD) Non-Af 110, BUN/Creatinine Ratio 15.0, Glucose 128 H, Calcium 8.8, Total Bilirubin 0.60, Direct Bilirubin 0.33 H, AST 46 H, ALT 105 H, Alkaline Phosphatase 106, Total Protein 6.2, Albumin 3.5, Globulin 2.7 Radiography Diagnostic Testing: Radiology Impression C-Arm Fluoroscopy 06/26/25 16:10 IMPRESSION: Intraoperative fluoroscopy performed for ERCP. 15 fluoroscopic images were also obtained. Reading Location: [address] Endo Retro Cholangiopancreatogram 06/26/25 16:10 IMPRESSION: Intraoperative fluoroscopy performed for ERCP. 15 fluoroscopic images were also obtained. Reading Location: [address] Rhythm Strip Rhythm Strip: Sinus Rhythm Rate: 76 Ectopy: None Physical Exam Const no apparent distress and healthy appearing General Appearance: well developed Orientation / Consciousness: oriented to person, oriented to place and oriented to time Eyes conjunctivae normal Resp Effort and Inspection: able to speak in complete sentences and symmetric chest movement Auscultation: clear to auscultation bilaterally Cardio Palpation: normal PMI Rate: regular rate Rhythm: regular rhythm GI soft to palpation GI Narrative: abdomen is soft, non-distended, mild generalized abdominal discomfort, no pain, 4 small occlusive dressings C/D/I Auscultation: normoactive bowel sounds Palpation: soft Rectal Exam: deferred Assessment & Plan Assessment/Plan (1) Choledocholithiasis: PLAN: s/p ERCP with biliary sphincterotomy with balloon extraction (2) Acute gallstone pancreatitis: PLAN: KUB in 2 weeks to confirm passage of pancreatic stent Labs in 2 weeks PLAN: Plan 49y/o male post ERCP 06/26/2025 with biliary sphincterotomy, balloon extraction and ventral pancreatic stent placement for choledocholithiasis post CCX 06/25/2025. Labs today reveal WBC 8.8, HGB 12.5, Tbili 0.60, AST 30 -> 46, ALT 117 -> 105, ALP WNL. Aferbile. Denies any abdominal pain, N/V; he is tolerating PO. I have reviewed with Dr. Singh and he will complete OP labs and KUB in 2 weeks to confirm normalization of transaminases and passage of pancreatic stent.
[2025-06-27 10:45] VITALS: BP 137/77; PULSE 70; RESP 18; TEMP 37.1; O2SAT 100
--- NOTE | 2025-06-27 11:00 | PCM.DC ---
Discharge Instructions DC O2, CPAP, BIPAP needs Home O2 Discharge instructions: No Dressing / Incision May shower in (days): 1 Dressing / Incision Call your doctor if your incision/area has: Continuous Slow Oozing, Sudden Increased Bleeding, Increased Pain/ Swelling, Increased Redness, Foul Smelling Discharge and Swelling at the incision site Call your doctor if you observe: Fever of 101 or Higher Cleanse incision/area with: Soap & Water Additional Dressing/Incision Instructions:: Steri-Strips will fall off in 7 to 10 days, if they do not fall off okay to remove after 10 days. Follow Up Care Please Follow Up With: Sachi Weeks MD Test Results: Test results from this visit will be discussed in further detail at your follow-up appointment, if applicable. Discharge Plan Admission Admit Date/Time: 06/22/25 17:46 Primary Reason for Your Visit: Choledocholithiasis with gallstone pancreatitis Attending Provider: Nathanael Killian Primary Care Provider: Care Physician,No Primary Consulting Providers: Sachi Weeks; Prosper Berrios; Russ Carter Discharge Orders/Prescriptions Prescriptions: New oxycodone 5 mg capsule 5 mg PO Q6H PRN (Reason: pain) 3 Days Qty: 10 0RF Referrals / Follow Up: Parker Singh DO [Med Staff - Active Staff] - Within 1 Month Sachi Weeks MD [Med Staff - Active Staff] - Within 2 Weeks Care Physician,No Primary [Primary Care Provider] - Steph Mayfield NP-C [Med Staff - Adv Practice Prof] - Within 2 Weeks Disposition Disposition (needs filled in before D/C Order can be placed): Home, Self Care
--- NOTE | 2025-06-27 11:04 | PCM.DC.SUM ---
Providers Date of Admission: 06/22/25 Date of Discharge: 06/27/25 Primary Care Physician: Catalina Primary Care Phys Consultations 06/22/25 19:21 Consult: Gastroenterology Routine Consulting Provider: [facility] Reason for Consult: pancreatitis EMERGENT Consult: No Notified: Yes Date Notified: 06/22/25 Time Notified: 17:48 Method of Notification: ED Physician Initiated Consult: General Surgery Routine Consulting Provider: Sachi Weesk Reason for Consult: pancreatitis EMERGENT Consult: No Notified: Yes Date Notified: 06/22/25 Time Notified: 18:05 Method of Notification: Verbal Reason For Visit: GALLSTONE PANCREATITIS Diagnosis Discharge Diagnosis (1) Choledocholithiasis: Status: Acute Code(s): K80.50 - Calculus of bile duct without cholangitis or cholecystitis without obstruction Plan This 49-year-old gentleman is being admitted for right upper quadrant discomfort with numbness in the left arm. Hospital cardiac workup was negative. Gallstone pancreatitis 1. Gallstone pancreatitis from suspected passed gallstone: Right upper quadrant pain/tenderness has resolved. Ultrasound showed multiple gallstones, normal wall. CT scan also showed multiple gallstones but no obvious inflammation of the gallbladder. There was inflammation around the head of the pancreas therefore pancreatitis and gallstone pancreatitis. Liver chemistry shows improvement in total bilirubin, ALT and AST. Lipase was more than 3000. -continue supportive treatment including fluids and pain meds if needed 06/26: The patient had lap marita on 06/25. Cystic artery and duct was tied at GB end. Found to have choledocholithiasis on intraoperative cholangiogram. Plan for ERCP today. Liver chemistry shows ALT, AST 30. Total bilirubin 0.61/direct 0.34. Total bilirubin normal. ALT improving. 06/27: Patient had ERCP on 06/26 and choledocholithiasis was found for which complete removal was accomplished by biliary sphincterotomy and balloon extraction. 1 temporary stent was placed in the ventral pancreatic duct. Patient was seen by Steph Mayfield NP from GI and she ordered follow-up x-ray in 2 weeks. Patient does not have signs and symptoms of infection therefore no indication of antibiotic. Patient had antibiotic during inpatient, Zosyn. Was given a prescription of oxycodone by surgeon. Liver chemistry shows further improvement with total bilirubin normal, ALT 105, AST 46. #2 cholelithiasis-was evaluated by surgeon Dr. Sachi Weeks. As mentioned below Discharge medication reconciliation done. Discharge follow-up instructions completed. Discharge process discussed with the patient and all questions were answered to patient's satisfaction. Follow with PCP in 1 to 2 weeks Total time spent, exact 35 minutes on discharge meds reconciliation, examination, coordination of care with nurses and ancillary staff, review of imaging and blood test and discussion with the patient on follow-up instructions. Laboratory Results 06/26/25 04:20: WBC 10.7, RBC 4.46 L, Hgb 13.2, Hct 40.3, MCV 90.4, MCH 29.6, MCHC 32.8, RDW Std Deviation 45.7 H, RDW Coeff of Teresa 13.7, Plt Count 308, MPV 10.9, Immature Gran % (Auto) 0.300, Neut % (Auto) 83.2 H, Lymph % (Auto) 9.8 L, [place] % (Auto) 6.5, Eos % (Auto) 0.0, Baso % (Auto) 0.2, Absolute Neuts (auto) 8.9 H, Absolute Lymphs (auto) 1.05, Nucleated RBC % 0, Sodium 137, Potassium 4.1, Chloride 104, Carbon Dioxide 21.8, Anion Gap 12, BUN 10, Creatinine 0.88, Estim Creat Clear Calc 144.70, Est GFR (MDRD) Non-Af 107, BUN/Creatinine Ratio 11.6, Glucose 127 H, Calcium 9.0, Total Bilirubin 0.61, Direct Bilirubin 0.34 H, AST 30, ALT 117 H, Alkaline Phosphatase 71, Total Protein 6.6, Albumin 3.6, Globulin 3.0 Medications at Discharge Home Medications oxycodone 5 mg capsule 5 mg PO Q6H PRN pain 3 days #10 caps 06/25/25 Physical Exam Narrative Seen and examined Patient denies any abdominal pain. No nausea or vomiting or abdominal distention. No abdominal pain nausea vomiting. Had ERCP yesterday. Physical exam General: Alert, Oriented x3, Cooperative HEENT: Atraumatic, PERRLA, EOMI, Normocephalic. Oral: No Gingival or Mucosal Lesions/ Ulcerations Neck: Supple, No JVD, Negative Carotid Bruits Chest wall/Lungs: Air entry diminished in bilateral lung bases. No crepitation/rhonchi Cardiovascular: Regular rate and rhythm, Normal S1,S2, No M/G/R Abdomen: Bowel Sounds Present, Soft, no acute tenderness over right upper quadrant/epigastrium. Nondistended : No dysuria. No renal angle tenderness. No suprapubic tenderness. Extremities: No edema, Capillary Refill Less than 3 Seconds Skin: No rashes, No breakdown Musculoskeletal: No Tenderness to Palpation of Joints or Extremities Neurological: Cranial nerves II-XII grossly intact, DTR 2+/4. No acute focal neurological deficit. Psych/Mental Status: Normal Affect, Appropriate. Weight / BMI Weight Weight: 279 lb 1.683 oz Body Mass Index (BMI) 36.8 ABG / Lab / Microbiology Data 06/27/25 06:27 06/27/25 06:27 Laboratory: Laboratory Results - last 24 hr 06/27/25 06:27: WBC 9.9, RBC 4.21 L, Hgb 12.5 L, Hct 38.2 L, MCV 90.7, MCH 29.7, MCHC 32.7, RDW Std Deviation 46.5 H, RDW Coeff of Teresa 14.1, Plt Count 311, MPV 11.6, Immature Gran % (Auto) 0.500, Neut % (Auto) 75.6 H, Lymph % (Auto) 14.9 L, [place] % (Auto) 8.6, Eos % (Auto) 0.2, Baso % (Auto) 0.2, Absolute Neuts (auto) 7.5, Absolute Lymphs (auto) 1.48, Nucleated RBC % 0, Sodium 139, Potassium 4.0, Chloride 106, Carbon Dioxide 22.5, Anion Gap 10, BUN 12, Creatinine 0.79, Estim Creat Clear Calc 161.18, Est GFR (MDRD) Non-Af 110, BUN/Creatinine Ratio 15.0, Glucose 128 H, Calcium 8.8, Total Bilirubin 0.60, Direct Bilirubin 0.33 H, AST 46 H, ALT 105 H, Alkaline Phosphatase 106, Total Protein 6.2, Albumin 3.5, Globulin 2.7 Radiography Diagnostic Testing: Radiology Impression C-Arm Fluoroscopy 06/26/25 16:10 IMPRESSION: Intraoperative fluoroscopy performed for ERCP. 15 fluoroscopic images were also obtained. Reading Location: [id number] End[facility] Retro Cholangiopancreatogram 06/26/25 16:10 IMPRESSION: Intraoperative fluoroscopy performed for ERCP. 15 fluoroscopic images were also obtained. Reading Location: [id number] D/C Instructions May shower in (days): 1 Call your doctor if your incision/area has: Continuous Slow Oozing, Sudden Increased Bleeding, Increased Pain/ Swelling, Increased Redness, Foul Smelling Discharge and Swelling at the incision site Call your doctor if you observe: Fever of 101 or Higher Cleanse incision/area with: Soap & Water Additional Dressing/Incision Instructions: Steri-Strips will fall off in 7 to 10 days, if they do not fall off okay to remove after 10 days. DC O2, CPAP, BIPAP Needs Home O2 Discharge instructions: No Please Follow Up With: Sachi Weeks MD When: Call the office for a follow-up appointment 2 weeks; after 5 PM and on the weekends call [phone] with any concerns. Meaningful Use Info Meaningful Use Meaningful Use Diagnoses (Choose all that apply): None applicable Discharge Plan Admission Admit Date/Time: 06/22/25 17:46 Primary Reason for Your Visit: Choledocholithiasis with gallstone pancreatitis Attending Provider: Nathanael Killian Primary Care Provider: Care Physician,Catalina Primary Consulting Providers: Sachi Weeks; Prosper Berrios; Russ Carter Discharge Orders/Prescriptions Prescriptions: New oxycodone 5 mg capsule 5 mg PO Q6H PRN (Reason: pain) 3 Days Qty: 10 0RF Referrals / Follow Up: Parker Singh DO [Med Staff - Active Staff] - Within 1 Month Sachi Weeks MD [Med Staff - Active Staff] - Within 2 Weeks Care Physician,No Primary [Primary Care Provider] - Steph Mayfield NP-C [Med Staff - Adv Practice Prof] - Within 2 Weeks Disposition Disposition (needs filled in before D/C Order can be placed): Home, Self Care Charges/Coding Visit Charges Inpatient E&M: 37735 Disch Hosp >30min
--- NOTE | 2025-06-27 11:32 | CASEMGMT ---
RN CM into pt room, pt provided with a local healthcare directory list. Pt states he has a rx at [facility] pharmacy. Pt would like this brought to the room. TC to [facility], request made for this. Pt denies any further homegoing needs at this time.
--- NOTE | 2025-06-27 11:48 | PHA.DC.MC.R ---
Pharmacy [facility] Counseling Pharmacy Service has performed discharge medication reconciliation and counseling for this patient. 1. OXYCODONE 5MG PO Q6H PRN PAIN The patient's discharge medication list was reviewed for discrepancies and discrepancies were resolved. The patient was counseled on the following discharge medications and changes in medications for homegoing were reviewed. The Reason for Use, instructions for use, and potential side effects were reviewed for all new medications. The patient's questions regarding all of their medications were answered. The patient was able to verbally demonstrate an understanding of their discharge medications. Medications at Discharge Home Medications oxycodone 5 mg capsule 5 mg PO Q6H PRN pain 3 days #10 caps 06/25/25
--- NOTE | 2025-06-27 12:45 | NURSING ---
Pt given discharge instructions including medication, follow up appointments and all other discharge instructions. pt denies any further questions at this time. IV removed with catheter intact, clean dry dressing applied, pt tolerated well. Pt getting dressed and gathering up belongings then will call when ready to be wheeled out to waiting vehicle.
== END 2025-06-27 13:15 | disposition home or self-care (01) | DRG 417 ==
LOC: ED 17:05 → MS3 18:23
PROVIDERS: Internal Medicine Gastroenterology; Surgery; Emergency Provider Emergency Medicine; Visit Provider Internal Medicine
PROC: 0FT44ZZ Resection of Gallbladder, Percutaneous Endoscopic Approach (ICD-10-PCS; CPT 47562; principal; 2025-06-25 13:40)
PROC: 0FC98ZZ Extirpation of Matter from Common Bile Duct, Via Natural or Artificial Opening Endoscopic (ICD-10-PCS; CPT 43260; principal; 2025-06-26 15:40)
DX: K80.50 Calculus of bile duct without cholangitis or cholecystitis without obstruction (principal); K85.10 Biliary acute pancreatitis without necrosis or infection
CPT/HCPCS: 36415; 71046; 74177; 74300; 74330; 76000; 76705; 80048; 80053; 80076; 83690; 84484; 85025; 88304; 93005; 97802; 99285; Q9967; A4216; J2405

== ENCOUNTER → 2025-07-06 | Outpatient (CLI) | payer BC, SELFPAY ==
--- NOTE | 2025-07-06 15:16 | RAD_ITS ---
PROCEDURE: ABDOMEN SINGLE VIEW 07/06/2025 REASON FOR EXAM: CONFIRM PASSAGE OF PANCREATIC STENT TECHNIQUE: Two-view supine abdomen COMPARISON: Chest x-ray of 06/22/[address] of 06/22/2025 RAD/Abdomen Single View IMPRESSION: No radiopaque foreign body is seen, and no pancreatic stent is identified on th is examination. The bowel-gas pattern is unremarkable. No mass or mass effect is seen. Degenerative changes of the spine again noted. Reading Location: [place] [id number]
[2025-07-06 16:34] LABS: AST(SGOT) 24 U/L (<=37); Alanine Aminotransfer ALT/SGPT 41 U/L (<=46); Albumin, Serum 4.4 g/dL (3.5-5.0); Alkaline Phosphatase 68 U/L (40-129); Bilirubin, Direct 0.21 mg/dL (0.00-0.30); Globulin 3.3 g/dL (2.2-4.2)
== END | disposition home or self-care (01) ==
PROVIDERS: Referring Provider Nurse Practitioner Acute Care; Visit Provider Nurse Practitioner Acute Care
DX: K85.10 Biliary acute pancreatitis without necrosis or infection (principal); K80.50 Calculus of bile duct without cholangitis or cholecystitis without obstruction
CPT/HCPCS: 36415; 74018; 80076